=== PATIENT | male | born 1955 | race Caucasian/White ===

== ENCOUNTER 2022-06-25 13:03 | Emergency (ER) | payer OTHER ==
--- OUTSIDE RECORDS SUMMARY | 2022-06-25 13:12 | XMS REPORT | Continuity of Care Document ---
:1955 Author Organization [facility] t Address [address] [place] [address] Care Team Providers Name Role Phone LON SPANGLER Attending Clinician Unavailable JOJO GARCIAS Attending Clinician Unavailable RITA HAQUE Attending Clinician Unavailable JOJO GARCIAS Admitting Clinician Unavailable DENISSE VILLASENOR Admitting Clinician Unavailable Problems Condition Condition Condition Status Onset Resolution Last Treating Co mments Source Name Details Category Date Date Treatment Clinician Date UNK UNK Diagnosis Active 2021-06-15 Mem oria Active 05-07 05:41:00 l 05/07/2021 00:00: Fredi osorio [facility] 00 Mo,SHIRA [place] COLONOSCOP Diagnosis Active 2021-07-10 Memoria Y COLONOSCOP 05-07 15:17:00 l Y Active 00:00: Mo 05/07/[address] [place] [address] Mo R52 - R52 - Diagnosis Active 2021-02-18 Mem oria PAIN, PAIN, 02-10 11:49:00 l UNSPECIFIE UNSPECIFIE 00:01: Chris rocha D D Active 00 02/10/2021 [facility] [place] ACUTE ACUTE Diagnosis Active 2020-01-20 Mem oria CHEST PAIN CHEST PAIN 01-16 17:52:00 l Active 00:00: Mo 01/17/2020 00 [facility] HIGH BLOOD HIGH Diagnosis Active 2020-01-17 Memoria PRESSURE BLOOD 01-16 08:40:00 l PRESSURE 00:00: Mo Active 00 01/17/2020 [facility] CHEST PAIN CHEST Diagnosis [facility] 2019-01-11 [facility] 01-09 10:21:00 l Active 08:00: Mo 01/09/2019 00 [facility] TACHYCARDI TACHYCARD Diagnosis Active 2019-01-10 Memoria A IA Active 01-09 04:53:00 l 01/09/2019 08:00: Fredi n [address] ELEVATED ELEVATED Diagnosis Active 2017-112018-10-02 Memoria HEART/HBP HEART/HBP 1-14 18:28:00 l Active 00:00: Mo 09/26/2018 [facility] Diagnosis Active 2017-112018-12-24 [facility] oria PTCA/STENT PTCA/STENT 15:59:00 l Active 08:00: [place] 08/22/2018 00 [facility] DX: ABN DX: ABN Diagnosis Active 2018-08-22 [facility] STRESS STRESS 08-09 07:13:00 l TEST TEST 00:00: [place] Active 00 08/09/2018 [facility] 599.72 - 599.72 - Diagnosis Active 2014-07-06 [facility] MICROSCOPI MICROSCOPI 3-05 01:40:00 l C HEM C HEM 00:01: Mo Active 00 01/15/2014 [facility] [place] Dizziness Problem 2019-04-16 Ar moria and Dizziness 14:37:08 l giddiness and [place] giddiness 04/16/2019 [facility] Chronic Chronic Problem 2019-04-16 Ar moria gout, gout, 14:37:08 l unspecifie unspecifie He rmann d, without d, without tophus tophus (tophi) (tophi) 04/16/2019 [facility] Diaphragma Diaphragm Problem 2019-04-16 Memoria tic hernia atic 14:37:08 l without hernia Mo obstructio without n or obstructio gangrene n or gangrene 04/16/2019 [facility] Enlarged Enlarged Problem 2019-04-16 Memoria prostate prostate 14:37:08 l without without [place] lower lower urinary urinary tract tract symptoms symptoms 04/16/2019 [facility] prison prison Problem 2019-04-16 Memoria (current) (current) 14:37:08 l use of use of [place] aspirin aspirin 04/16/2019 [facility] prison Long Problem 2019-04-16 Me moria (current) term 14:37:08 l use of (current) Mo antithromb use of otics/anti antithromb platelets otics/anti platelets 04/16/2019 [facility] Family Family Problem 2019-03-11 Mem oria history of history of 12:08:51 l ischemic ischemic Fredi n heart heart disease disease and other and other diseases diseases of the of 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 03/11/2019 [facility] Other long Other Problem 2019-03-11 Memoria term skilled nursing 12:08:51 l (current) (current) Herm lance drug drug therapy therapy 03/11/2019 [facility] Gout, Gout, Problem 2019-01-26 Memor ia unspecifie unspecifie 14:07:47 l d d [place] 01/26/2019 [facility] Arthritis Arthritis Problem Resolve 2021-07-23 Memoria (disorder) (disorder) d 00:18:43 l Resolved [place] Problem 07/23/2021 [facility], [facility] Backache Backache Problem Resolve 2021-07-23 Memoria (finding) (finding) d 00:18:43 l Resolved Mo Problem 07/23/2021 Medical [facility], [facility] Hemorrhoid Hemorrhoi Problem Resolve 2021-07-23 Memoria s ds d 00:18:43 l (disorder) (disorder) Chris rocha Resolved Problem 07/23/2021 [facility], [facility] Interverte Intervert Problem Resolve 2021-07-23 Memoria bral disc ebral disc d 00:18:43 l prolapse prolapse Fredi n (disorder) (disorder) Resolved Problem 07/23/2021 [facility], [facility] Benign Benign Problem Resolve 2021-07-23 Mem oria prostatic prostatic d 00:18:43 l hyperplasi hyperplasi Chris rocha a a (disorder) (disorder) Resolved Problem 07/23/2021 Medical Group Gastroesop Gastroeso Problem Resolve 2021-07-23 Memoria hageal phageal d 00:18:43 l reflux reflux Mo disease disease (disorder) (disorder) Resolved Problem 07/23/2021 [facility] Group Heart Heart Problem Resolve 2021-07-23 Fausto heron disease disease d 00:18:43 l (disorder) (disorder) He rmann Resolved Problem 07/23/2021 [facility] Coronary Coronary Problem Active 2021-07-23 Memoria arterioscl arterioscl 00:18:43 l erosis erosis [place] (disorder) (disorder) Active Problem 07/23/2021 [facility], [facility] Gout Gout Problem Active 2021-07-23 Memor ia (disorder) (disorder) 00:18:43 l Active [place] Problem 07/23/2021 [facility], [facility] History of History Problem Active 2021-07-23 Memoria malignant of 00:18:43 l neoplasm malignant Izabela nn of neoplasm prostate of (situation prostate ) (situation ) Active Problem 07/23/2021 [facility], [facility] History of History Problem Active 2021-07-23 Memoria placement of 00:18:43 l of stent placement Izabela nn for of stent coronary for artery coronary disease artery (situation disease ) (situation ) Active Problem 07/23/2021 [facility], [facility] Hypertensi Hypertens Problem Active 2021-07-23 Memoria ve raquel 00:18:43 l disorder, disorder, Herm lance systemic systemic arterial arterial (disorder) (disorder) Active Problem 07/23/2021 [facility], [facility] Immunizati Immunizat Problem Active 2021-07-23 Memoria on due ion due 00:18:43 l (finding) (finding) Herm lance Active Problem 07/23/2021 [facility] [place] Patient Patient Problem Active 2021-07-23 M emoria encounter encounter 00:18:43 l status status [place] (finding) (finding) Active Problem 07/23/2021 [facility], [facility] Fatigue Fatigue Problem Active 2021-07-23 M emoria (finding) (finding) 00:18:43 l Active Mo Problem 07/23/2021 [facility], [facility] [place]ade [place] Problem Active 2021-07-23 Memoria dness edness 00:18:43 l (finding) (finding) Herm lance Active Problem 07/23/2021 [facility], [facility] [place] Palpitatio Palpitati Problem Active 2021-07-23 Memoria ns ons 00:18:43 l (finding) (finding) Herm lance Active Problem 07/23/2021 [facility], [facility] [place] Right Right Problem Active 2021-07-23 Memor ia inguinal inguinal 00:18:43 l hernia hernia Mo (disorder) (disorder) Active Problem 07/23/2021 [facility], [facility] [place] Vertigo Vertigo Problem Active 2021-07-23 Me moria (finding) (finding) 00:18:43 l Active Mo Problem 07/23/2021 [facility], [facility] [place] Hypokalemi Problem Active 2019-07-11 M emoria a Hypokalemi 11:11:25 l (disorder) a Fredi n (disorder) Active Problem 07/11/2019 Medical Group,[facility] Screening Screening Problem Active 2019-07-11 Memoria status status 11:11:25 l (finding) (finding) Herm lance Active Problem 07/11/2019 [facility] Suprapubic Suprapubi Problem Active 2020-04-10 Memoria pain c pain 23:45:53 l (finding) (finding) Herm lance Active Problem 04/10/2020 [facility] Group Benign Benign Problem Active 2018-06-02 Fausto heron prostatic prostatic 06:19:32 l hypertroph hypertroph He rmann without without outflow outflow obstructio obstructio n n (disorder) (disorder) Active Problem 06/02/2018 [facility] Raised Raised Problem Active 2018-06-02 Fausto heron prostate prostate 06:19:32 l specific specific Fredi antigen antigen (finding) (finding) Active Problem 06/02/2018 [facility] Group,[facility] CHEST CHEST Diagnosis Active 2020-01-20 Mem oria PAIN, PAIN, 17:52:00 l UNSPECIFIE UNSPECIFIE He rmann D D Active [facility] N40.0 N40.0 Diagnosis Active 2017-02-21 Mem oria Active 13:30:00 l [facility] TACHYCARDI TACHYCARD Diagnosis Active 2018-10-03 Memoria A, IA, 12:43:00 l UNSPECIFIE UNSPECIFIE He rmann D D Active [facility] Hyperlipid Hyperlipi Problem 2019-04-16 Memoria patrick salazar, 13:26:56 l unspecifie unspecifie He rmann d d 04/16/2019 [facility] Palpitatio Palpitati Problem 2019-04-16 Memoria ns ons 14:37:08 l 04/16/2019 Fredi osorio [facility] Atheroscle Atheroscl Problem 2019-04-16 Memoria rotic erotic 14:37:08 l heart heart [place] disease of disease of [place] coronary coronary artery artery without without angina angina pectoris pectoris 04/16/2019 [facility] Essential Essential Problem 2019-04-16 Memoria (primary) (primary) 14:37:08 l hypertensi hypertensi He rmann on on 04/16/2019 [facility] Other Other Problem 2019-04-16 Memor ia hyperlipid hyperlipid 14:37:08 l emia emlucy [place] 04/16/2019 [facility] Hypokalemi Hypokalem Problem 2019-04-16 Memoria a ia 14:37:08 l 04/16/2019 Fredi osorio [facility] History of Past Illness Condition Condition Condition Status Onset Resolution Last Treating Co mments Source Name Details Category Date Date Treatment Clinician Date Presence Presence Problem 2018-2019-07-11 2019-07-11 Memoria of of 2-15 11:11:25 11:11:25 l coronary coronary 05:18: Fredi osorio angioplast angioplast 26 y implant y implant and graft and graft 12/28/2018 07/11/2019 Shen Ibarra [facility] Tachycardi Tachycard Problem 2017-112019-04-16 2019-04-16 lucy Chacon, - 14:37:08 14:37:08 l unspecifie unspecifie 05:17: Chris ja kang d 57 10/03/2018 04/16/2019 Shen Ibarra [facility] Atheroscle Atheroscl Problem 2017-112019-03-11 2019-03-11 Alexei rotic erotic 0-17 12:08:51 12:08:51 l heart heart 03:52: Mo disease of disease of 35 [place] coronary coronary artery artery with with unstable unstable angina angina pectoris pectoris 08/29/2018 9 [facility] Allergies, Adverse Reactions, Alerts Allergy Allergy Status Severity Reaction(s) Onset Inactive Treating Comm ents Source Name Type Date Date Clinician losartan losartan Active Memori a l [place] Chlorhex Chlorhex Active Memori a idine idine l Gluconat Gluconat Fredi n e e Social History Social Habit Start Date Stop Date Quantity Comments Source Social History 2017-03-06 2017-03-06 [facility] ermann 16:24:57 16:24:57 Medications Ordered Filled Start Stop Current Ordering Indication Dosage Frequency Signature Comments Components Source Medication Medication Date Date Medication? Clinician (SIG) Name Name atorvastati Yes 40 mg = 1 M emoria n 40 mg 9-01 tab, PO, l oral tablet 14:09: Bedtime, # [place] 00 90 tab, 1 Refill(s), Pharmacy: [facility] #1, 170.18, cm, 06/21/21 9:27:00 CDT, Height, 80.114, kg, 06/21/21 9:27:00 CDT, Weight olmesartan Yes = 1 tab, Mem oria 40 mg oral 8-27 PO, Daily, l tablet 15:29: # 90 ea, 3 Izabela nn 00 Refill(s), Pharmacy: [facility]-63, 170.18, cm, 06/21/21 9:27:00 CDT, Height, 80.114, kg, 06/21/21 9:27:00 CDT, Weight Triamcinolo Yes 1 appl, Mem oria ne 8-09 TOP, BID, l Acetonide 1 14:45: PRN Apply H ermann MG/ML 00 to Topical affected Cream area(s), apply a thin film to leg rash, X 14 day, # 60 gm, 0 Refill(s), Pharmacy: [facility] Pharmacy [place] #1, 170.18, cm, 06/21/21 9:27:00 CDT, Height, 80.114, kg, 06/21/21 9:27:00 CDT, Weight allopurinol Yes = 1 tab, Me moria 300 mg oral 6-24 PO, Daily, l tablet 19:04: # 90 ea, 3 Izabela nn 00 Refill(s), Pharmacy: [facility], 170.18, cm, 05/06/21 9:07:00 CDT, Height, 81.42, kg, 05/06/21 9:07:00 CDT, Weight Vitamin D3 Yes Daily, 0 Mem oria 5-12 Refill(s) l 20:49: Mo meclizine Yes 25 mg = 1 Mem oria 25 mg oral 3-30 tab, PO, l tablet 18:39: TID, PRN [place] 00 dizziness, X 10 day, # 30 tab, 0 Refill(s), Pharmacy: [facility] Pharmacy [place] #1, 170.18, cm, 02/09/21 13:10:00 CDT, Height, 80.085, kg, 02/09/21 13:10:00 CDT, Weight Labetalol No 10 mg, Memori a -20 Route: l 20:58: IVP, Mo Q5Min, Dosing Weight 77.273, kg, PRN Elevated BP, Start date: 12/02/20 14:58:00 FOOD ASSEMBLER, Duration: 5 doses or times, Stop date: Limited # of times Ketorolac Yes 4 days Memor ia -20 l 20:58: MEDICATION Mo 00 WASTE Product Size: 30 mg Product Wasted: ___ mg Acetaminoph No 1,000 mg, M emoria en 12-02 Route: l 20:58: IVPB, Drug Mo 00 form: INJ, ONCE, Dosing Weight 77.273, kg, PRN Pain Score 1-3, Start date: 12/02/20 14:58:00 FOOD ASSEMBLER Oxycodone 1-0 No 5 mg, Memoria Hydrochlori 12-02 Route: PO, l de 5 MG 20:58: Drug form: Herm lance Oral Tablet 00 TAB, Q4H, Dosing Weight 77.273, kg, PRN Pain Score 1-3, Start date: 12/02/20 14:58:00 FOOD ASSEMBLER, Duration: 30 day, Stop date: 01/01/21 14:57:00 FOOD ASSEMBLER Morphine 2020-0 No 2 mg, Memoria 12-02 Route: l 20:58: IVP, [place] 00 Q5Min, Dosing Weight 77.273, kg, PRN Pain Score 4-6, Start date: 12/02/20 14:58:00 FOOD ASSEMBLER, Duration: 5 doses or times, Stop date: Limited # of times Hydromorpho 2020-0 No 0.5 mg, Mem oria ne 12-02 Route: l 20:58: IVP, [place] 00 Q5Min, Dosing Weight 77.273, kg, PRN Pain Score 7-10, Start date: 12/02/20 14:58:00 FOOD ASSEMBLER, Duration: 4 doses or times, Stop date: Limited # of times Flumazenil 2020-0 No 0.2 mg, Fausto heron 12-02 Route: l 20:58: IVP, PRN, [place] 00 Dosing Weight 77.273, kg, PRN Benzodiaze pine Reversal, Initial dose, Start date: 12/02/20 14:58:00 FOOD ASSEMBLER, Duration: 30 day, Stop date: 01/01/21 14:57:00 FOOD ASSEMBLER Naloxone 2020-0 No 0.4 mg, Memori a 12-02 Route: l 20:58: IVP, [place] 00 Q2MIN, Dosing Weight 77.273, kg, PRN Narcotic Reversal, Start date: 12/02/20 14:58:00 FOOD ASSEMBLER, Duration: 8 doses or times, Stop date: Limited # of times Albuterol 1-0 No 2.49 mg, Fausto heron 0.83 MG/ML 12-02 Route: l Inhalant 20:58: NEB, [place] Solution 00 Q20Min, Dosing Weight 77.273, kg, PRN Wheezing, Start date: 12/02/20 14:58:00 FOOD ASSEMBLER, Duration: 30 day, Stop date: 01/01/21 14:57:00 FOOD ASSEMBLER Diphenhydra No 12.5 mg, Me moria mine 12-02 Route: l 20:58: IVP, Drug form: INJ, Q6H, Dosing Weight 77.273, kg, PRN Itching, Start date: 12/02/20 14:58:00 FOOD ASSEMBLER, Duration: 30 day, Stop date: 01/01/21 14:57:00 FOOD ASSEMBLER Meperidine No 12.5 mg, Mem oria 12-02 Route: l 20:58: IVP, Mo Q30Min, Dosing Weight 77.273, kg, PRN Other -See Comment, For shivering, Start date: 12/02/20 14:58:00 FOOD ASSEMBLER, Duration: 2 doses or times, Stop date: Limited # of times Ondansetron No 4 mg, Memor ia 12-02 Route: l 20:58: IVP, ONCE, Dosing Weight 77.273, kg, PRN Nausea & Vomiting, Start date: 12/02/20 14:58:00 FOOD ASSEMBLER glycopyrrol No Route: IV, Memoria ate (ANES) 12-02 Drug form: l 20:26: INJ, ONCE, Stop date: 12/02/20 14:26:00 FOOD ASSEMBLER midazolam No Route: IV, Me moria (ANES) 12-02 Drug form: l 19:56: SOLN, 00 ONCE, Stop date: 12/02/20 13:56:00 FOOD ASSEMBLER fentaNYL No Route: IV, Mem oria (ANES) 12-02 Drug form: l 19:56: INJ, ONCE, Stop date: 12/02/20 13:56:00 FOOD ASSEMBLER propofol No Route: IV, Mem oria (ANES) 12-02 Drug form: l 19:56: INJ, ONCE, Stop date: 12/02/20 13:56:00 FOOD ASSEMBLER lidocaine No Route: IV, Me moria (ANES) 1-20 Drug form: l 19:56: INJ, ONCE, Stop date: 12/02/20 13:56:00 FOOD ASSEMBLER ondansetron No Route: IV, Memoria (ANES) 1-20 Drug form: l 19:56: INJ, ONCE, Stop date: 12/02/20 13:56:00 FOOD ASSEMBLER ePHEDrine No Route: IV, Me moria (ANES) 1- Drug form: l 19:56: INJ, ONCE, Stop date: 12/02/20 13:56:00 FOOD ASSEMBLER ceFAZolin No Route: IV, Me moria (ANES) 1- Drug form: l 19:51: INJ, ONCE, Stop date: 12/02/20 13:51:00 FOOD ASSEMBLER Lactated No Route: IV, Mem oria Ringers -20 Total l Injection 19:00: Volume: Izabela nn IV (ANES) 00 1,000, 1000 mL Start date: 12/02/20 13:00:00 FOOD ASSEMBLER, Stop date: 12/02/20 14:00:00 FOOD ASSEMBLER tramadol Yes 100 mg = 2 Mem oria hydrochlori 1-20 tab, PO, l de 50 MG 16:25: Q8H, X 5 Izabela nn Oral Tablet 00 day, # 30 tab, 0 Refill(s) gabapentin Yes 300 mg = 1 M emoria 300 MG Oral 1-20 cap, PO, l Capsule 16:25: TID, # 42 Izabela nn 00 cap, 0 Refill(s) Calcium No 1,000 mL, Memor ia Chloride 1-20 Rate: 75 l 0.0014 15:51: ml/hr, MEQ/ML / 00 Infuse Potassium over: 13.3 Chloride hr, Route: 0.004 IV, Dosing MEQ/ML / Weight Sodium 77.273 kg, Chloride Total 0.103 Volume: MEQ/ML / 1,000, Sodium Start Lactate date: 0.028 12/02/20 MEQ/ML 9:51:00 Injectable FOOD ASSEMBLER, Solution Duration: 1 day, Stop date: 12/03/20 9:50:00 FOOD ASSEMBLER, 1.93, m2, 0 metoprolol Yes 50 mg = 1 Me moria tartrate 50 1-07 tab, PO, l mg oral 13:32: BID, # 180 Herm lance tablet 00 tab, 0 Refill(s) 0.5 ML 2019-0 Yes 0.5 mL, Memoria Varicella 6-05 IM, ONCE, l zoster 19:25: repeat Mo virus 00 dose in 2 glycoprotei to 6 n E, months, # recombinant 1 mL, 1 0.1 MG/ML Refill(s), Injection Pharmacy: [Shingrix] [facility] #1 allopurinol 2019-0 Yes 300 mg, Mem oria 300 mg oral 6-05 PO, Daily, l tablet 19:15: # 90 tab, Fredi n 00 3 Refill(s), Pharmacy: [facility] #1 olmesartan 2019-0 Yes 40 mg = 1 Me moria 40 mg oral 6-05 tab, PO, l tablet 19:15: Daily, # [place] 00 90 tab, 3 Refill(s), Pharmacy: [facility] #1 Sulfamethox 2019-0 Yes 1 tab, PO, Memoria azole 800 5-06 BID, X 14 l MG / 21:43: day, # 28 [place] Trimethopri 00 tab, 0 m 160 MG Refill(s), Oral Tablet Pharmacy: [Bactrim] [facility] #1 Ciprofloxac 2019-0 Yes 500 mg = 1 Memoria in 500 MG 5-06 tab, PO, l Oral Tablet 14:03: Q12H, for H ermann [Cipro] 00 prostatiti s, X 25 day, # 50 tab, 0 Refill(s), Pharmacy: [facility] #1 Ciprofloxac 2020-0 No 500 mg = 1 Memoria in 500 MG 5-05 tab, PO, l Oral Tablet 19:17: Q12H, for H ermann [Cipro] 00 UTI, X 3 day, # 6 tab, 0 Refill(s), Pharmacy: [facility] #1 Sodium 2020-0 No 1,000 mL, Memori a Chloride 3-06 Rate: 75 l 0.45% IV 14:32: ml/hr, [place] 1,000 mL 00 Infuse over: 13.3 hr, Route: IV, Dosing Weight 80.455 kg, Total Volume: 1,000, Start date: 01/17/20 8:32:00 FOOD ASSEMBLER, Duration: 30 day, Stop date: 02/16/20 8:31:00 CDT, 1.97, m2, 0 Dextrose 2020-0 No 12.5 gm, Memor ia 50% Syringe 3-06 25 mL, l (D50W) 14:30: Route: Mo IVP, Drug Form: INJ, Dosing Weight 80.455, kg, PRN, PRN Blood Glucose Results, Start date: 01/17/20 8:30:00 FOOD ASSEMBLER, Duration: 30 day, Stop date: 02/16/20 9:29:00 CDT, 0 Glucagon 2019-0 No 1 mg, Memoria 01-16 Route: IM, l 14:30: Drug form: [place] PDR/INJ, PRN, Dosing Weight 80.455, kg, PRN Blood Glucose Results, Start date: 01/17/20 8:30:00 FOOD ASSEMBLER, Duration: 30 day, Stop date: 02/16/20 9:29:00 CDT, 0 Ondansetron 2019-0 No Notes: Fausto heron - (Same as: l 14:30: Zofran) [place] 00 MEDICATION WASTE Product Size: 4 mg Product Wasted: ___ mg Aspirin 2019-0 No Notes: Memoria 3-06 Take with l 12:50: food. [place] 00 Sodium 2020-0 No 1,000 mL, Memori a Chloride -06 1000 l 0.9% 11:15: ml/hr, Mo (Bolus) IV 00 Infuse Over: 1 hr, Route: IV, 1,000, Drug form: INJ, ONCE, Priority: STAT, Dosing Weight 80.455 kg, Start date: 01/17/20 5:15:00 FOOD ASSEMBLER, Stop date: 01/17/20 5:15:00 FOOD ASSEMBLER, 0 olmesartan 2019- Yes 40 mg = 1 Me moria 40 mg oral 0-22 tab, PO, l tablet 13:47: Daily, # Mo 50 90 tab, 3 Refill(s), Pharmacy: [facility] #1 allopurinol 2019- Yes 300 mg, Mem oria 300 mg oral 0-22 PO, Daily, l tablet 13:47: # 90 tab, Fredi n 43 3 Refill(s), Pharmacy: [facility] Pharmacy [place] #1 Ticagrelor Yes = 1 tab, Mem oria 90 MG Oral 4-27 PO, BID, # l Tablet 12:59: 180 ea, Mo [Brilinta] 04 Refill(s) 5, Pharmacy: [facility] Pharmacy [place] #1 olmesartan Yes 40 mg = 1 Me moria 40 mg oral 4-23 tab, PO, l tablet 12:33: Daily, # Mo 04 90 tab, 1 Refill(s), Pharmacy: [facility] Pharmacy [place] #1 allopurinol Yes 300 mg, Mem oria 300 mg oral 4-23 PO, Daily, l tablet 12:33: # 90 tab, Fredi n 02 3 Refill(s), Pharmacy: [facility] Pharmacy [place] #1 Aspirin 81 No Notes: Do Me moria MG Enteric 3- not crush l Coated 15:00: or chew. [place] Tablet 00 (Same As: Ecotrin) atorvastati No Notes: Fausto heron n 3-01 (Same as: l 03:00: Lipitor) Protonix No Notes: Memoria 2-28 Tablet l 22:30: should not 00 be chewed or crushed. (Same as: Protonix) Saline No Notes: Memoria Flush 0.9% -28 (Same as: l 15:00: BD Posiflush) Brilinta No Notes: Memoria 2-28 (Same as: l 15:00: Brilinta) Omeprazole No 20 mg, Memor ia 2-28 Route: PO, l 15:00: Drug form: ECTAB, Daily, Dosing Weight 80.2, kg, Start date: 01/10/19 9:00:00 FOOD ASSEMBLER, Duration: 30 day, Stop date: 02/08/19 9:00:00 CDT olmesartan No 40 mg, 2 Mem oria 2-28 tab, l 15:00: Route: PO, Drug form: TAB, Daily, Dosing Weight 80.2, kg, Start date: 01/10/19 9:00:00 FOOD ASSEMBLER, Duration: 30 day, Stop date: 02/08/19 9:00:00 CDT Allopurinol No Notes: Fausto heron 01-10 (Same as: l 15:00: Zyloprim) Enoxaparin No Notes: Memor ia 01-10 (Same as: l 11:00: Lovenox) Saline No Notes: Memoria Flush 0.9% 01-10 (Same as: l 10:17: BD Posiflush) Nitroglycer No Notes: Fausto heron in 01-10 (Same l 10:17: as:Nitroqu ick, Nitrostat) "Do Not Crush" Sublingual tablet Aspirin No Notes: Memoria 01-10 Take with l 08:51: food. Saline No Notes: Memoria Flush 0.9% 01-10 (Same as: l 08:51: BD Posiflush) allopurinol 2017-11 No 300 mg, Mem oria 300 mg oral 1-26 PO, Daily, l tablet 13:56: # 90 tab, Fredi n 00 3 Refill(s), Pharmacy: [facility] Pharmacy [place] #1 olmesartan 2017-11 No 40 mg = 1 Me moria 40 mg oral 1-26 tab, PO, l tablet 13:54: Daily, # Mo 36 90 tab, 1 Refill(s), Pharmacy: [facility] olmesartan 2017-11 No 40 mg = 1 Me moria 40 mg oral 1-20 tab, PO, l tablet 13:11: Daily, # [place] 00 30 tab, 0 Refill(s), Pharmacy: [facility] Pharmacy [place] #1 atorvastati 2017-11 No Notes: Fausto heron n 1-16 (Same as: l 03:00: Lipitor) Potassium 2017-11 No Notes: Memori a Chloride 1-15 (Same as: l 19:56: K-Dur 20) "Do Not Crush" For patients unable to swallow tablet, dissolve in one half glass of water. Allow about 2 minutes for the tablets to disintegra te. Stir before giving to prepare slurry and administer . Please exclude Patient s with feeding tube less than 14 [place] (Dobhoff, J-tube etc) and pediatric and patients. With food and full glass of water Protonix 2017-11 No Notes: Memoria 1-15 Tablet l 15:00: should not [place] 00 be chewed or crushed. (Same as: Protonix) Brilinta 2017-11 No Notes: Memoria 1-15 (Same as: l 15:00: Brilinta) [place] 00 olmesartan 2017-11 No 40 mg, 2 Mem oria 1-15 tab, l 15:00: Route: PO, Mo 00 Drug form: TAB, Daily, Dosing Weight 81.5, kg, Start date: 09/27/18 9:00:00 [employer]SEMBLER, Duration: 30 day, Stop date: 10/26/18 9:00:00 FOOD ASSEMBLER Aspirin 81 2017-11 No Notes: Do Me moria MG Enteric 1-15 not crush l Coated 15:00: or chew. [place] Tablet 00 (Same As: Ecotrin) Allopurinol 2017-11 No Notes: Fausto heron 1-15 (Same as: l 15:00: Zyloprim) [place] 00 Ondansetron 2017-11 No Notes: Fausto heron 1-15 (Same as: l 09:59: Zofran [place] 00 ODT) Acetaminoph 2017-11 No Notes: Do M emoria en -15 not exceed l 09:59: 4 gm/day. Mo (Same as: Tylenol) Dextrose 2017-11 No 25 gm, 50 Fausto heron 50% Syringe 1-15 mL, Route: l 09:59: IVP, Drug [place] 00 Form: INJ, Dosing Weight 83.009, kg, PRN, PRN Blood Glucose Results, Start date: 09/27/18 3:59:00 FOOD ASSEMBLER, Duration: 30 day, Stop date: 10/27/18 3:58:00 FOOD ASSEMBLER Glucagon 2017-11 No 1 mg, Memoria 1-15 Route: IM, l 09:59: Drug form: Mo 00 PDR/INJ, PRN, Dosing Weight 83.009, kg, PRN Blood Glucose Results, Start date: 09/27/18 3:59:00 FOOD ASSEMBLER, Duration: 30 day, Stop date: 10/27/18 3:58:00 FOOD ASSEMBLER Saline 2017-11 No Notes: Memoria Flush 0.9% 1-15 (Same as: l 03:57: BD Mo 00 Posiflush) atorvastati 2017-11 Yes 40 mg = 1 M emoria n 40 mg 0-15 tab, PO, l oral tablet 21:55: Bedtime, # [place] 54 90 tab, 3 Refill(s), Pharmacy: [facility] Pharmacy [place] #1 Aspirin 81 2017-11 No 81 mg, Memor ia MG Enteric 0-11 Route: PO, l Coated 14:00: Drug form: Izabela nn Tablet 00 ECTAB, Daily, Dosing Weight 84.091, kg, Start date: 08/23/18 9:00:00 CDT, Duration: 30 day, Stop date: 09/21/18 9:00:00 FOOD ASSEMBLER Ticagrelor 2017-11 No 90 mg, Memor ia 0-11 Route: PO, l 02:00: Q12H, Mo 00 Dosing Weight 84.091, kg, Start date: 08/22/18 21:00:00 CDT, Duration: 30 day, Stop date: 09/21/18 9:00:00 FOOD ASSEMBLER Nitroglycer 2017-11 No Notes: Fausto heron in 0-10 (Same l 15:30: as:Nitroqu Mo 00 ick, Nitrostat) "Do Not Crush" Sublingual tablet Sodium 2017-11 No 750 mL, Memoria Chloride 0-10 Rate: 75 l 0.9% IV 750 15:30: ml/hr, Herm lance mL 00 Infuse over: 10 hr, Route: IV, Dosing Weight 84.091 kg, Total Volume: 750, Start date: 08/22/18 10:30:00 CDT, Duration: 10 hr, Stop date: 08/22/18 20:29:00 CDT, 2.01, m2 Ticagrelor 2017-11 No 90 mg = 1 Me moria 90 MG Oral 0-10 tab, PO, l Tablet 15:28: BID, # 60 Fredi n [Brilinta] 00 tab, 6 Refill(s), Pharmacy: [facility] Pharmacy [place] #1 Aspirin 81 2017-11 Yes 81 mg = 1 Me moria MG Enteric 0-10 tab, PO, l Coated 15:28: Daily, # [place] Tablet 00 90 tab, 3 Refill(s), Pharmacy: [facility] #1 atorvastati 2017-11 No 40 mg = 1 M emoria n 40 mg 0-10 tab, PO, l oral tablet 15:28: Bedtime, # [place] 00 30 tab, 0 Refill(s), Pharmacy: [facility] #1 Omeprazole 2017-11 Yes 20 mg = 1 Me moria 20 MG 0-09 tab, PO, l Enteric 14:49: Daily [place] Coated 00 Tablet [Prilosec] olmesartan No 40 mg = 1 Me moria 40 mg oral 8-30 tab, PO, l tablet 15:35: Daily, # Mo 00 90 tab, 0 Refill(s), Pharmacy: [facility] Pharmacy [place] #1 valsartan No 320 mg = 1 Me moria 320 mg oral 8-30 tab, PO, l tablet 14:11: Daily, # [place] 00 90 tab, 1 Refill(s), Pharmacy: [facility] #1 escitalopra No 10 mg = 1 M emoria m 10 mg 8-30 tab, PO, l oral tablet 14:08: Daily, # [place] 00 90 tab, 0 Refill(s), Pharmacy: [facility] #1 losartan No 100 mg = 1 Mem oria 100 mg oral 7-18 tab, PO, l tablet 13:22: Daily, # Mo 00 90 tab, 1 Refill(s) Protonix No 40 mg, 1 Memor ia 5-23 tab, l 21:30: Route: PO, Mo 00 Drug form: ECTAB, Before Dinner, Start date: 04/04/17 16:30:00 CDT, Duration: 30 day, Stop date: 05/03/17 16:30:00 CDT Lactated 2016-0 No 1,000 mL, Fausto heron [place] 5-23 Rate: 100 l 1,000 mL 15:56: ml/hr, Infuse over: 10 hr, Route: IV, Dosing Weight 84.591 kg, Total Volume: 1,000, Priority: STAT, Start date: 04/04/17 10:56:00 CDT, Duration: 30 day, Stop date: 05/04/17 10:55:00 CDT oxybutynin 2016- No Notes: Memor ia 5-23 Same as: l 14:29: Ditropan) Morphine No 2 mg, 1 Memori a 5-23 mL, Route: l 14:27: IV, Drug form: SOLN, Q3H, Dosing Weight 84.591, kg, PRN Pain Score 4-6, Start date: 04/04/17 9:27:00 CDT, Duration: 30 day, Stop date: 05/04/17 9:26:00 CDT tamsulosin No Notes: Memor ia 5-23 (Same As: l 14:16: Flomax) "Do Not Crush" Sodium No 1,000 mL, Memori a Chloride 5-23 Rate: 100 l 0.154 14:13: ml/hr, MEQ/ML 00 Infuse Injectable over: 10 Solution hr, Route: IV, Dosing Weight 84.591 kg, Total Volume: 1,000, Start date: 04/04/17 9:13:00 CDT, Duration: 30 day, Stop date: 05/04/17 9:12:00 CDT Rocephin No Notes: Memoria 5-23 (Same As: l 14:12: Rocephin). Use with 100 mL NS and infuse over 30 min MEDICATION WASTE Product Size: 1000 mg Product Wasted: _0__ mg Diovan 2016- No Notes: Memoria 5-23 Same as l 14:00: Diovan Prilosec No 20 mg, Memoria 5-23 Route: PO, l 14:00: Daily, Dosing Weight 84.591, kg, Start date: 04/04/17 9:00:00 CDT, Duration: 30 day, Stop date: 05/03/17 9:00:00 CDT Allopurinol 2016-0 No Notes: Fausto heron 5-23 (Same as: l 14:00: Zyloprim) Tylenol No 650 mg, 2 Memor ia 5-23 tab, l 11:34: Route: PO, Mo 00 Drug form: TAB, Q4H, Dosing Weight 84.591, kg, PRN Pain Score 1-3, Start date: 04/04/17 6:34:00 CDT, Duration: 30 day, Stop date: 05/04/17 6:33:00 CDT Sodium No 25 mL, Memoria Chloride 5-23 Route: IV, l 0.9% IV 02:34: Start [place] 00 date: 04/03/17 21:34:00 CDT, Duration: 30 day, Stop date: 05/03/17 21:33:00 CDT, PRN Line Flush BD Normal No Notes: Memori a Saline 5-23 (Same as: l Flush 02:34: BD Mo Posiflush) Sodium No 1,000 mL, Memori a Chloride 5-23 1000 l 0.154 02:28: ml/hr, [place] MEQ/ML 00 Infuse Injectable Over: 1 Solution hr, Route: IV, 1,000, Drug form: INJ, ONCE, Priority: STAT, Dosing Weight 84.091 kg, Start date: 04/03/17 21:28:00 CDT, Duration: 1 doses or times, Stop date: 04/03/17 21:28:00 CDT Finasteride Yes 5 mg = 1 Me moria 5 MG Oral 4-28 tab, PO, l Tablet 16:39: Daily, # [place] [Proscar] 00 30 tab, 0 Refill(s), Pharmacy: [facility] Pharmacy [place] #2 Ciprofloxac Yes 500 mg = 1 Memoria in 500 MG 4-28 tab, PO, l Oral Tablet 16:39: Q12H, X 7 H ermann [Cipro] 00 day, # 14 tab, 0 Refill(s), Pharmacy: [facility] Pharmacy [place] #2 tramadol Yes 1 - 2 Memoria hydrochlori 4-28 tabs, PO, l de 50 MG 16:39: Q4-6H, PRN Her colon Oral Tablet 00 Pain Score [Ultram] 1-5, X 4 day, # 30 tab, 0 Refill(s) Protonix No Notes: Memoria 4-27 Tablet l 21:30: should not [place] be chewed or crushed. (Same as: Protonix) Docusate No Notes: Memoria Sodium 100 03-09 (Same as: l MG Oral 14:00: Colace) [place] Capsule (Do Not Crush) Famotidine No Notes: Memor ia 03-09 (Same as: l 14:00: Pepcid) Ciprofloxac No Notes: Do M emoria in 03-09 not l 14:00: refrigerat e Diovan No Notes: Memoria 03-09 Same as l 14:00: Diovan Allopurinol No Notes: Fausto heron 03-09 (Same as: l 14:00: Zyloprim) Prilosec No 20 mg, Memoria 03-09 Route: PO, l 14:00: Daily, Dosing Weight 85.511, kg, Start date: 03/09/17 9:00:00 CDT, Duration: 30 day, Stop date: 04/07/17 9:00:00 CDT Promethazin No Notes: Do M emoria e 03-09 not give l 13:09: IV push. (Same as: Phenergan) Meperidine No Notes: Memor ia 03-09 (Same as: l 13:09: Demerol) "Use Precaution in Elderly, Seizure disorders, and Renal impairment " Ondansetron No Notes: Fausto heron 03-09 (Same as: l 13:09: Zofran) MEDICATION WASTE Product Size: 4 mg Product Wasted: ___ mg Flumazenil No Notes: Memor ia 03-09 (Same as: l 13:09: Romazicon) Hydromorpho No Notes: Fausto heron ne 03-09 Same as l 13:09: Dilaudid Morphine No Notes: Memoria 03-09 (Same l 13:09: as:MORPhin e Sulfate) Naloxone No Notes: Memoria 03-09 Same as l 13:09: Narcan Labetalol No 10 mg, Memori a 4-27 Route: l 13:09: IVP, Mo 00 Q5Min, Dosing Weight 85.511, kg, PRN Elevated BP, Start date: 03/09/17 8:09:00 CDT, Duration: 5 doses or times, Stop date: Limited # of times Metoprolol No Notes: Memor ia 4-27 (Same as: l 13:09: Lopressor) Push over 2 minutes Hydralazine No Notes: Fausto heron -27 (Same as: l 13:09: Apresoline ) Push over 5 minutes esmolol No Notes: Memoria 4-27 (Same as: l 13:09: Brevibloc) Belladonna No Notes: Memor ia Alkaloids - (Same As:B l 16.2 MG / 13:00: & O Supp Herm lance Opium 30 MG 16A) Rectal Suppository Ondansetron No Notes: Fausto heron - (Same as: l 13:00: Zofran) MEDICATION WASTE Product Size: 4 mg Product Wasted: ___ mg Morphine No 6 mg, 3 Memori a 4-27 mL, Route: l 13:00: IVP, Drug form: SOLN, Q4H, Dosing Weight 85.511, kg, PRN Pain Score 7-10, Start date: 03/09/17 8:00:00 CDT, Duration: 30 day, Stop date: 04/08/17 7:59:00 CDT acetaminoph No Notes: Do M emoria en-codeine - not exceed l #3 13:00: 4gm/day of acetaminop hen. (Same as: Tylenol with Codeine # 3) Acetaminoph No Notes: Do M emoria en 4-27 not exceed l 13:00: 4 gm/day. (Same as: Tylenol) Calcium No 1,000 mL, Memor ia Chloride 03-09 Rate: 125 l 0.0014 13:00: ml/hr, MEQ/ML / 00 Infuse Potassium over: 8 Chloride hr, Route: 0.004 IV, Dosing MEQ/ML / Weight Sodium 85.511 kg, Chloride Total 0.103 Volume: MEQ/ML / 1,000, Sodium Start Lactate date: 0.028 03/09/17 MEQ/ML 8:00:00 Injectable CDT, Solution Duration: 30 day, Stop date: 04/08/17 7:59:00 CDT ceFAZolin + No Notes: Fausto heron sodium 4-27 (Same As: l chloride 11:00: Ancef, Mo 0.9% 100 mL 00 Kefzol) INJ (for IV set) 100 mL MEDICATION WASTE Product Size: 1000 mg Product Wasted: _0__ mg Sodium No 25 mL, Memoria Chloride 4-27 Route: IV, l 0.9% IV 11:00: Start [place] 00 date: 03/09/17 6:00:00 CDT, Duration: 30 day, Stop date: 04/08/17 5:59:00 CDT, PRN Line Flush BD Normal No Notes: Memori a Saline 4-27 (Same as: l Flush 11:00: BD Mo 00 Posiflush) Lidocaine No Notes: Memori a 4-27 Ingredient l 10:30: s: 2 ml [place] 00 lidocaine 1% inj , 0.2ml sodium bicarbonat e 8.4% inj total volume = 2.2ml Refrigerat e: 14 days Room temp: 7 days Calcium No 1,000 mL, Memor ia Chloride 4-27 Rate: 25 l 0.0014 10:30: ml/hr, Mo MEQ/ML / 00 Infuse Potassium over: 40 Chloride hr, Route: 0.004 IV, Dosing MEQ/ML / Weight Sodium 85.511 kg, Chloride Total 0.103 Volume: MEQ/ML / 1,000, Sodium Start Lactate date: 0.028 03/09/17 MEQ/ML 5:30:00 Injectable CDT, Solution Duration: 30 day, Stop date: 04/08/17 5:29:00 CDT Immunizations Ordered Immunization Filled Immunization Date Status Commen ts Source Name Name [id number] 2021-01-25 Completed Fausto rial [id number] 00:00:00 Herm lance [id number] 2021-01-04 Completed Fausto rial [id number] 00:00:00 Herm lance pneumococcal 2020-04-17 Completed [facility] 23-valent 19:43:00 [place] vaccine<sup>1</sup> pneumococcal 2019-01-10 Completed [facility] 13-valent vaccine 19:15:00 [place] Vital Signs Vital Name Observation Time Observation Value Comments Source Systolic (mm Hg) 2021-06-21 14:27:[address] [place] Diastolic (mm Hg) 2021-06-21 14:27:00 Mem orial Mo Height 2021-06-21 14:27:00 170.18 cm [facility] Mo Weight 2021-06-21 14:27:00 [facility] Mo BMI Calculated 2021-06-21 14:27:[address] [place] Systolic (mm Hg) 2021-05-06 14:07:[address] [place] Diastolic (mm Hg) 2021-05-06 14:07:[address] [place] Heart Rate 2021-05-06 14:07:[address] [place] Height 2021-05-06 14:07:00 170.18 cm [facility] Mo Weight 2021-05-06 14:07:00 [facility] Mo BMI Calculated 2021-05-06 14:07:[address] [place] Systolic (mm Hg) 2021-04-21 15:55:00 Fausto rial Mo Diastolic (mm Hg) 2021-04-21 15:55:[address] [place] Heart Rate 2021-04-21 15:55:00 [facility] Mo Height 2021-04-21 15:55:00 170.18 cm [facility] Mo Weight 2021-04-21 15:55:[address] [place] BMI Calculated 2021-04-21 15:55:[address] [place] Systolic (mm Hg) 2021-03-24 20:37:00 Fausto rial Mo Diastolic (mm Hg) 2021-03-24 20:37:[address] [place] Height 2021-03-24 20:37:[address] [place] Weight 2021-03-24 20:37:[address] [place] BMI Calculated 2021-03-24 20:37:00 Memori al Mo Systolic (mm Hg) 2021-02-09 18:10:[address] [place] Diastolic (mm Hg) 2021-02-09 18:10:[address] [place] Heart Rate 2021-02-09 18:10:[address] [place] Height 2021-02-09 18:10:[address] [place] Weight 2021-02-09 18:10:00 [facility] Mo BMI Calculated 2021-02-09 18:10:[address] [place] Systolic (mm Hg) 2020-12-03 00:00:[address] [place] Diastolic (mm Hg) 2020-12-03 00:00:00 Mem orial Mo Systolic (mm Hg) 2020-12-02 22:30:[address] [place] Diastolic (mm Hg) 2020-12-02 22:30:00 Mem orial Mo Systolic (mm Hg) 2020-12-02 22:00:[address] [place] Diastolic (mm Hg) 2020-12-02 22:00:00 Mem orial Mo Respitory Rate 2020-12-02 21:15:00 Memori al Mo Respitory Rate 2020-12-02 21:00:[address] [place] Respitory Rate 2020-12-02 20:45:[address] [place] Height 2020-11-27 20:43:[address] [place] Weight 2020-11-27 20:43:00 [facility] Mo BMI Calculated 2020-11-27 20:43:[address] [place] Systolic (mm Hg) 2020-11-19 13:31:00 Fausto rial Mo Diastolic (mm Hg) 2020-11-19 13:31:00 Mem orial Mo Heart Rate 2020-11-19 13:31:[address] [place] Height 2020-11-19 13:31:00 170.18 cm [facility] Mo Weight 2020-11-19 13:31:00 [facility] Mo BMI Calculated 2020-11-19 13:31:00 Memori al Mo Systolic (mm Hg) 2020-08-17 19:15:00 Fausto rial Mo Diastolic (mm Hg) 2020-08-17 19:15:00 Mem orial Mo Heart Rate 2020-08-17 19:15:00 [facility] Mo Temperature Oral (F) 2020-08-17 19:15:[address] [place] Height 2020-08-17 19:15:00 170.18 cm [facility] Mo Weight 2020-08-17 19:15:00 [facility] Mo BMI Calculated 2020-08-17 19:15:[address] [place] Systolic (mm Hg) 2020-04-17 19:08:00 Fausto rial Mo Diastolic (mm Hg) 2020-04-17 19:08:00 Mem orial Mo Heart Rate 2020-04-17 19:08:00 [facility] Mo Temperature Oral (F) 2020-04-17 19:08:[address] [place] Height 2020-04-17 19:08:00 170.18 cm [facility] Mo Weight 2020-04-17 19:08:00 [facility] Mo BMI Calculated 2020-04-17 19:08:[address] [place] Systolic (mm Hg) 2020-04-08 14:56:[address] [place] Diastolic (mm Hg) 2020-04-08 14:56:[address] [place] Heart Rate 2020-04-08 14:56:00 [facility] Mo Weight 2020-04-08 14:56:[address] [place] Systolic (mm Hg) 2020-03-18 22:13:00 Fausto rial Mo Diastolic (mm Hg) 2020-03-18 22:13:00 Mem orial Om Heart Rate 2020-03-18 22:13:[address] [place] Weight 2020-03-18 22:13:[address] [place] Systolic (mm Hg) 2020-01-23 20:58:[address] [place] Diastolic (mm Hg) 2020-01-23 20:58:[address] [place] Height 2020-01-23 20:58:00 170.18 cm [facility] Mo Weight 2020-01-23 20:58:[address] [place] BMI Calculated 2020-01-23 20:58:[address] [place] Systolic (mm Hg) 2020-01-17 14:53:00 Fausto rial Mo Diastolic (mm Hg) 2020-01-17 14:53:00 Mem orial Mo Respitory Rate 2020-01-17 14:53:00 Memori al Mo Temperature Oral (F) 2020-01-17 14:53:[address] [place] Systolic (mm Hg) 2020-01-17 13:46:00 Fausto rial Mo Diastolic (mm Hg) 2020-01-17 13:46:[address] [place] Respitory Rate 2020-01-17 13:46:[address] [place] Heart Rate 2020-01-17 13:37:00 [facility] Mo Respitory Rate 2020-01-17 13:37:00 Memori al Mo Systolic (mm Hg) 2020-01-17 13:37:00 Fausto rial Mo Diastolic (mm Hg) 2020-01-17 13:37:[address] [place] Temperature Oral (F) 2020-01-17 11:00:[address] [place] Heart Rate 2020-01-17 11:00:00 [facility] Mo Heart Rate 2020-01-17 09:29:[address] [place] Temperature Oral (F) 2020-01-17 09:29:00 97.9 F [facility] Height 2020-01-17 09:29:[address] [place] BMI Calculated 2020-01-17 09:29:00 Memori al Mo Weight 2020-01-17 09:29:00 [facility] Systolic (mm Hg) 2019-09-03 13:27:00 Fausto rial Mo Diastolic (mm Hg) 2019-09-03 13:27:00 Mem orial Mo Heart Rate 2019-09-03 13:27:00 [facility] Mo Temperature Oral (F) 2019-09-03 13:27:[address] [place] Height 2019-09-03 13:27:[address] [place] Weight 2019-09-03 13:27:00 [facility] Mo BMI Calculated 2019-09-03 13:27:[address] [place] Weight 2019-03-06 18:15:00 [facility] Mo BMI Calculated 2019-03-06 18:15:[address] [place] Systolic (mm Hg) 2019-03-06 18:15:00 Fausto rial Mo Diastolic (mm Hg) 2019-03-06 18:15:[address] [place] Height 2019-03-06 18:15:[address] [place] Heart Rate 2019-03-05 12:08:[address] [place] Systolic (mm Hg) 2019-03-05 12:08:[address] [place] Diastolic (mm Hg) 2019-03-05 12:08:00 Mem orial Mo Temperature Oral (F) 2019-03-05 12:08:[address] [place] Weight 2019-02-21 20:18:[address] [place] Systolic (mm Hg) 2019-02-21 20:18:[address] [place] Diastolic (mm Hg) 2019-02-21 20:18:[address] [place] Heart Rate 2019-02-21 20:18:00 [facility] Mo Systolic (mm Hg) 2019-01-10 18:03:00 Fausto rial Mo Diastolic (mm Hg) 2019-01-10 18:03:[address] [place] Respitory Rate 2019-01-10 18:03:00 Memori al Mo Heart Rate 2019-01-10 18:03:[address] [place] Temperature Oral (F) 2019-01-10 18:03:[address] [place] Weight 2019-01-10 11:59:[address] [place] Height 2019-01-10 11:59:00 170.18 cm [facility] Mo BMI Calculated 2019-01-10 11:59:00 Memori al Mo Respitory Rate 2019-01-10 11:16:00 Memori al Mo Systolic (mm Hg) 2019-01-10 11:16:[address] [place] Diastolic (mm Hg) 2019-01-10 11:16:00 Mem orial Mo Respitory Rate 2019-01-10 10:30:[address] [place] Systolic (mm Hg) 2019-01-10 10:30:00 Fausto rial Mo Diastolic (mm Hg) 2019-01-10 10:30:[address] [place] Heart Rate 2019-01-10 08:32:00 [facility] Temperature Oral (F) 2019-01-10 07:16:00 98.2 F [facility] Weight 2019-01-10 07:16:[address] [place] Heart Rate 2019-01-10 07:16:00 [facility] Weight 2018-12-24 22:34:[address] [place] Height 2018-12-24 22:34:[address] [place] BMI Calculated 2018-12-24 22:34:00 Memori al Mo Height 2018-11-22 22:36:00 170.18 cm [facility] Weight 2018-11-22 22:36:00 [facility] BMI Calculated 2018-11-22 22:36:00 Memori al Mo BMI Calculated 2018-10-22 22:09:[address] [place] Weight 2018-10-22 22:09:00 [facility] Height 2018-10-22 22:09:00 170.18 cm [facility] BMI Calculated 2018-10-08 13:34:[address] [place] Weight 2018-10-08 13:34:[address] [place] Height 2018-10-08 13:34:00 170.18 cm [facility] Temperature Oral (F) 2018-10-08 13:34:00 98.1 F [facility] Systolic (mm Hg) 2018-10-08 13:34:00 Fausto rial Mo Diastolic (mm Hg) 2018-10-08 13:34:[address] [place] Heart Rate 2018-10-08 13:34:[address] [place] BMI Calculated 2018-10-03 18:34:[address] [place] Weight 2018-10-03 18:34:00 [facility] Height 2018-10-03 18:34:00 170.18 cm [facility] Systolic (mm Hg) 2018-10-03 18:34:00 Fausto rial Mo Diastolic (mm Hg) 2018-10-03 18:34:[address] [place] Respitory Rate 2018-09-27 17:43:00 Memori al Mo Heart Rate 2018-09-27 17:43:00 [facility] Temperature Oral (F) 2018-09-27 17:43:00 97.6 F [facility] Systolic (mm Hg) 2018-09-27 17:43:[address] [place] Diastolic (mm Hg) 2018-09-27 17:43:00 Mem orial Mo Systolic (mm Hg) 2018-09-27 14:49:00 Fausto rial Mo Diastolic (mm Hg) 2018-09-27 14:49:00 Mem orial Mo Heart Rate 2018-09-27 14:49:00 [facility] Temperature Oral (F) 2018-09-27 14:49:00 97.8 F [facility] Respitory Rate 2018-09-27 14:49:00 Memori al Mo BMI Calculated 2018-09-27 10:21:[address] [place] Weight 2018-09-27 10:21:00 [facility] Height 2018-09-27 10:21:00 170.18 cm [facility] Heart Rate 2018-09-27 09:40:[address] [place] Systolic (mm Hg) 2018-09-27 09:40:[address] [place] Diastolic (mm Hg) 2018-09-27 09:40:00 Mem orial Mo Temperature Oral (F) 2018-09-27 09:40:[address] [place] Respitory Rate 2018-09-27 09:40:[address] [place] Respitory Rate 2018-09-27 08:19:00 Memori al Mo Respitory Rate 2018-09-27 07:52:[address] [place] Systolic (mm Hg) 2018-09-27 07:52:00 Fausto rial Mo Diastolic (mm Hg) 2018-09-27 07:52:00 Mem orial Mo Temperature Oral (F) 2018-09-27 07:20:[address] [place] Systolic (mm Hg) 2018-09-27 07:20:[address] [place] Diastolic (mm Hg) 2018-09-27 07:20:00 Mem orial Mo Respitory Rate 2018-09-27 07:20:00 Memori al Mo Systolic (mm Hg) 2018-09-27 06:57:[address] [place] Diastolic (mm Hg) 2018-09-27 06:57:[address] [place] Heart Rate 2018-09-27 05:17:00 [facility] Temperature Oral (F) 2018-09-27 05:17:00 98.6 F [facility] Weight 2018-09-27 03:51:[address] [place] Temperature Oral (F) 2018-09-27 03:51:00 98.5 F [facility] Heart Rate 2018-09-27 03:51:00 [facility] Height 2018-09-19 21:50:00 170.18 cm [facility] BMI Calculated 2018-09-19 21:50:00 Memori al Mo Weight 2018-09-19 21:50:00 [facility] Height 2018-08-21 16:20:00 170.18 cm [facility] BMI Calculated 2018-08-21 16:20:[address] [place] Weight 2018-08-21 16:20:00 [facility] BMI Calculated 2018-08-01 18:04:00 Memori al Mo Height 2018-08-01 18:04:[address] [place] Weight 2018-08-01 18:04:[address] [place] Systolic (mm Hg) 2018-08-01 18:04:00 Fausto rial Mo Diastolic (mm Hg) 2018-08-01 18:04:[address] [place] Height 2018-07-12 13:29:00 170.18 cm [facility] Weight 2018-07-12 13:29:00 [facility] BMI Calculated 2018-07-12 13:29:00 Memori al Mo Systolic (mm Hg) 2018-07-12 13:29:[address] [place] Diastolic (mm Hg) 2018-07-12 13:29:00 Mem o[facility] Mo Heart Rate 2018-07-12 13:29:00 [facility] Temperature Oral (F) 2018-07-12 13:29:00 98.6 F [facility] Weight 2018-07-10 18:53:00 [facility] BMI Calculated 2018-07-10 18:53:[address] [place] Height 2018-07-10 18:53:00 170.18 cm [facility] Systolic (mm Hg) 2018-07-10 18:53:[address] [place] Diastolic (mm Hg) 2018-07-10 18:53:[address] [place] Systolic (mm Hg) 2018-07-09 21:00:[address] [place] Diastolic (mm Hg) 2018-07-09 21:00:00 Mem o[facility] Mo Respitory Rate 2018-07-09 21:00:00 Memori al Mo Systolic (mm Hg) 2018-07-09 19:30:[address] [place] Diastolic (mm Hg) 2018-07-09 19:30:[address] [place] Respitory Rate 2018-07-09 19:30:[address] [place] Respitory Rate 2018-07-09 18:31:00 Memori al Mo Heart Rate 2018-07-09 18:31:00 [facility] BMI Calculated 2018-07-09 18:31:00 [facility] al Mo Weight 2018-07-09 18:31:00 [facility] Temperature Oral (F) 2018-07-09 18:31:00 98.4 F [facility] Height 2018-07-09 18:31:[address] [place] Systolic (mm Hg) 2018-07-09 18:31:[address] [place] Diastolic (mm Hg) 2018-07-09 18:31:00 [facility] Weight 2018-06-07 18:24:[address] [place] Height 2018-05-30 12:55:00 170.18 cm [facility] Weight 2018-05-30 12:55:[address] [place] BMI Calculated 2018-05-30 12:55:[address] [place] Heart Rate 2018-05-30 12:55:[address] [place] Systolic (mm Hg) 2018-05-30 12:55:00 [facility] Diastolic (mm Hg) 2018-05-30 12:55:00 [facility] Temperature Oral (F) 2018-05-30 12:55:00 97.7 F [facility] Systolic (mm Hg) 2017-04-05 15:59:00 [facility] Diastolic (mm Hg) 2017-04-05 15:59:[address] [place] Respitory Rate 2017-04-05 15:59:00 [facility] Heart Rate 2017-04-05 15:59:[address] [place] Temperature Oral (F) 2017-04-05 15:59:00 98.8 F [facility] Diastolic (mm Hg) 2017-04-05 13:24:[address] [place] Respitory Rate 2017-04-05 13:24:00 [facility] Temperature Oral (F) 2017-04-05 13:24:00 98.9 F [facility] Heart Rate 2017-04-05 13:24:00 [facility] Systolic (mm Hg) 2017-04-05 13:24:[address] [place] Respitory Rate 2017-04-05 10:10:[address] [place] Heart Rate 2017-04-05 10:10:[address] [place] Systolic (mm Hg) 2017-04-05 10:10:[address] [place] Diastolic (mm Hg) 2017-04-05 10:10:00 [facility] Temperature Oral (F) 2017-04-05 10:10:[address] [place] Weight 2017-04-04 05:06:[address] [place] BMI Calculated 2017-04-04 05:06:00 [facility] Height 2017-04-04 05:06:00 170.18 cm [facility] BMI Calculated 2017-04-04 01:16:00 [facility] Weight 2017-04-04 01:16:00 [facility] Height 2017-04-04 01:16:[address] [place] Systolic (mm Hg) 2017-03-10 12:27:00 [facility] Diastolic (mm Hg) 2017-03-10 12:27:00 [facility] Respitory Rate 2017-03-10 12:27:00 [facility] Heart Rate 2017-03-10 12:27:[address] [place] Temperature Oral (F) 2017-03-10 12:27:00 98.2 F [facility] Temperature Oral (F) 2017-03-10 08:33:00 99.3 F [facility] Heart Rate 2017-03-10 08:33:[address] [place] Systolic (mm Hg) 2017-03-10 08:33:00 Fausto rial Mo Diastolic (mm Hg) 2017-03-10 08:33:[address] [place] Respitory Rate 2017-03-10 08:33:[address] [place] Systolic (mm Hg) 2017-03-10 01:09:00 Fausto rial Mo Diastolic (mm Hg) 2017-03-10 01:09:00 Mem orial Mo Respitory Rate 2017-03-10 01:09:00 [facility] Mo Heart Rate 2017-03-10 01:09:[address] [place] Temperature Oral (F) 2017-03-10 01:09:00 98.6 F [facility] Weight 2017-03-09 15:00:00 [facility] BMI Calculated 2017-03-09 15:00:[address] [place] Height 2017-03-09 15:00:00 170.69 cm [facility] Height 2017-03-06 16:13:00 171.45 cm [facility] Mo BMI Calculated 2017-03-06 16:13:00 Stoney Gallego Weight 2017-03-06 16:13:00 [facility] Procedures Procedure Date / Time Performed Performing Clinician [facility] livia Measurement of 2021-04-21 15:48:00 Bart colon post-voiding residual urine and/or bladder capacity by ultrasound, non-imaging Open repair of inguinal 2020-12-02 06:00:[address] [place] hernia using synthetic mesh Colonoscopy<sup>1, 2</sup> 2016-08-12 05:00:00 Shen emorijelena Mo Colonoscopy<sup>3</sup> 2010-11-13 00:00:[address] [place] 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 00:00:00 [facility] neoplasm<sup>4</sup> Cardiac catheterization, Alexei garcia [place] left heart Hand repair [facility] TURP - Transurethral [facility] resection of prostate Encounters Start End Encounter Admission Attending Care Care Encounter Source Date/Time Date/Time Type Type Clinicians Facility Department ID 2021-06-08 Outpatient KALIA SPANGLERBL [id number] [facility] 11:01:44 [facility] 2022-06-17 2022-06-17 Outpatient KALIA SPANGLERBL [id number] 05:37:00 08:28:00 [facility] 2021-07-20 2021-07-21 [place] [id number] Mem[facility] 14:00:00 04:59:59 r Cardiology 55 l [facility] 2021-07-16 2021-07-16 [place] [id number] Memoria 15:30:00 15:30:00 Pre-Reg r Cardiology 53 l [facility] 2021-07-15 2021-07-16 [place] [id number] [facility] 18:00:00 04:59:59 r Cardiology 54 l [facility] 2021-07-08 2021-07-09 Between nullFlavo [facility] [id number] Memoria 20:58:56 20:58:56 Visit r Primary 34 l [facility] 2021-06-23 2021-06-23 Ambulatory nullFlavo [facility] [id number] Memoria 20:00:00 20:00:00 Pre-Reg r Urology 51 l [facility] 2021-06-21 2021-06-22 Outpatient nullFlavo [facility] [id number] Memoria 14:40:00 04:59:59 r Primary 52 l [facility] 2021-06-18 2021-06-18 Ambulatory nullFlavo [facility] Multi 37 [id number] Memoria 14:30:00 14:30:00 Pre-Reg r Specialty 50 l [facility] 2021-05-06 2021-05-07 Between nullFlavo [facility] [id number] Memoria 18:13:29 18:13:29 Visit r Primary 32 [facility] 2021-05-06 2021-05-07 Outpatient nullFlavo [facility] Multi 37 [id number] Memoria 13:30:00 04:59:59 r Specialty 49 l [facility] 2021-04-22 2021-04-23 Between nullFlavo [facility] [id number] Memoria 17:42:54 17:42:54 Visit r Urology 31 l [facility] 2021-04-21 2021-04-22 Outpatient nullFlavo [facility] [id number] Memoria 15:15:00 04:59:59 r Urology 48 l [facility] 2021-03-24 2021-03-25 Outpatient nullFlavo [facility] [id number] Memoria 20:45:00 04:59:59 r Cardiology 47 l [facility] 2021-02-18 2021-02-19 Between nullFlavo [facility] [id number] Memoria 18:11:58 18:11:58 Visit r Primary 30 [facility] 2021-02-18 2021-02-19 Outpt Diag nullFlavo [facility] [id number] Memoria 16:39:00 04:59:00 Services r Outpatient 02 [facility] 2021-02-11 2021-02-13 Phone nullFlavo [facility] [id number] Memoria 19:59:20 04:59:59 Message r Primary 04 [facility] 2021-02-11 2021-02-12 Between nullFlavo [facility] [id number] Memoria 14:45:31 14:45:31 Visit r Primary 28 l [facility] 2021-02-09 2021-02-10 Outpatient nullFlavo [facility] [id number] Memoria 18:00:00 04:59:59 r Primary 46 l [facility] 2020-12-17 2020-12-17 Ambulatory nullFlavo [facility] [id number] Memoria 15:15:00 15:15:00 Pre-Reg r General 44 l [facility] 2020-12-11 2020-12-12 Outpatient nullFlavo [facility] [id number] Memoria 14:30:00 05:59:59 r General 45 l [facility] 2020-12-02 2020-12-03 Day nullFlavo [facility] [id number] Memoria 15:27:00 00:04:00 Surgery [facility] 26 l [facility] 2020-12-02 2020-12-02 Outpatient JUANA GARCIAS PAGE [id number] 09:27:00 18:04:[address] [facility] 2020-12-02 2020-12-02 Outpatient MHIE MHIE [id number] Memoria 12:00:00 12:00:[address] [place] 2020-11-26 2020-11-26 Outpatient MHIE MHIE [id number] Memoria 09:00:00 09:00:[address] [place] 2020-11-19 2020-11-20 Outpatient nullFlavo [facility] [id number] Memoria 13:15:00 05:59:59 r Primary 41 l [facility] 2020-09-30 2020-09-30 Ambulatory nullFlavo [facility] [id number] Memoria 15:00:00 15:00:00 Pre-Reg r Urology 36 l [facility] 2020-09-28 2020-09-28 Ambulatory nullFlavo [facility] [id number] Memoria 19:45:00 19:45:00 Pre-Reg r Urology 40 l [facility] 2020-08-17 2020-08-18 Outpatient nullFlavo [facility] [id number] Memoria 18:45:00 04:59:59 r Urology 39 l [facility] 2020-05-01 2020-05-02 [place] [id number] Memoria 15:00:00 04:59:59 r Cardiology 38 l [facility] 2020-04-22 2020-04-24 Phone nullFlavo MG [id number] Memoria 16:44:29 04:59:59 Message r Primary 03 [facility] 2020-04-21 2020-04-22 Between nullFlavo [facility] [id number] Memoria 15:01:45 15:01:45 Visit r Primary 25 [facility] 2020-04-17 2020-04-18 [place] [id number] Memoria 19:00:00 04:59:59 r Primary 37 [facility] 2020-04-08 2020-04-09 [place] [id number] Memoria 14:15:00 04:59:59 r Urology 35 l [facility] 2020-04-02 2020-04-03 [place] [id number] Memoria 13:45:00 04:59:59 r Cardiology 32 l [facility] 2020-04-02 2020-04-03 [place] [id number] Memoria 13:00:00 04:59:59 r Cardiology 31 l [facility] 2020-03-18 2020-03-19 Between nullFlavo [facility] [id number] Memoria 14:02:06 14:02:06 Visit r Primary 24 [facility] 2020-03-18 2020-03-19 [place] [id number] Memoria 21:00:00 04:59:59 r Urology 34 l [facility] 2020-03-17 2020-03-18 [place] [id number] Memoria 19:00:00 04:59:59 r Primary 33 [facility] 2020-03-04 2020-03-04 [place] [id number] Memoria 12:15:00 12:15:00 Pre-Reg r Primary 29 [facility] 2020-02-14 2020-02-16 Phone nullFlavo [id number] Memoria 16:48:10 04:59:59 Message r Primary 02 [facility] 2020-01-23 2020-01-24 Outpatient nullFlavo [facility] [id number] Memoria 21:00:00 04:59:59 r Cardiology 28 l [facility] 2020-01-17 2020-01-17 Emergency nullFlavo [facility] [id number] Memoria 09:25:11 15:09:00 r Mo 22 [facility] 2020-01-17 2020-01-17 Emergency E [place] [id number] Memoria 03:25:00 09:09:[facility] 2020-01-10 2020-01-10 Ambulatory nullFlavo [facility] [id number] Memoria 17:30:00 17:30:00 Pre-Reg r Primary 30 [facility] 2019-09-03 2019-09-04 Outpatient nullFlavo [facility] [id number] Memoria 13:30:00 04:59:59 r Primary 27 [facility] 2019-04-09 2019-04-09 Ambulatory nullFlavo [facility] [id number] Memoria 12:30:00 12:30:00 Pre-Reg r Primary 22 [facility] 2019-04-01 2019-04-02 Between nullFlavo [facility] [id number] Memoria 13:34:02 13:34:02 Visit r Primary 21 [facility] 2019-03-18 2019-03-19 Between nullFlavo [facility] [id number] Memoria 16:43:01 16:43:01 Visit r Primary 19 [facility] 2019-03-06 2019-03-07 Between nullFlavo [facility] [id number] Memoria 20:50:35 20:50:35 Visit r Urology [address] [place] 2019-03-06 2019-03-07 Outpatient nullFlavo [facility] [id number] Memoria 18:30:00 04:59:59 r Cardiology 24 [facility] 2019-03-05 2019-03-06 Outpatient nullFlavo [facility] [id number] Memoria 12:00:00 04:59:59 r Primary 26 [facility] 2019-02-22 2019-02-23 Between nullFlavo [facility] [id number] Memoria 12:42:17 12:42:17 Visit r Urology 16 l [place] 2019-02-21 2019-02-22 Outpatient nullFlavo [facility] [id number] Memoria 20:15:00 04:59:59 r Urology 25 l [facility] 2019-02-05 2019-02-05 Ambulatory nullFlavo [facility] [id number] Memoria 19:30:00 19:30:00 Pre-Reg r Cardiology 23 l [facility] 2019-01-10 2019-01-10 Observatio nullFlavo [facility] [id number] Memoria 07:15:00 19:51:00 n r Mo 12 [facility] 2018-12-24 2019-01-10 Recurring nullFlavo [facility] [id number] Memoria 21:59:00 19:42:[address] [place] 03 [facility] 2018-11-22 2018-12-22 Recurring nullFlavo [facility] [id number] Memoria 21:15:00 05:59:[address] [place] 02 [facility] 2018-10-22 2018-11-21 Recurring nullFlavo [facility] [id number] Memoria 21:39:00 05:59:[address] [place] 01 [facility] 2018-09-19 2018-10-19 Recurring nullFlavo [facility] [id number] Memoria 17:11:00 05:59:00 r Mo 00 [facility] 2018-10-08 2018-10-09 Outpatient nullFlavo [facility] [id number] Memoria 13:30:00 05:59:59 r Primary 21 [facility] 2018-10-03 2018-10-04 Outpatient nullFlavo [facility] [id number] Memoria 18:30:00 05:59:59 r Cardiology 19 [facility] 2018-10-01 2018-10-03 Phone nullFlavo [facility] [id number] Memoria 21:33:00 05:59:59 Message r Primary 01 [facility] 2018-10-01 2018-10-01 Ambulatory nullFlavo [facility] [id number] Memoria 13:30:00 13:30:00 Pre-Reg r Primary 20 [facility] 2018-09-27 2018-09-27 Observatio nullFlavo [facility] [id number] Memoria 17:06:00 20:45:00 n r Mo 19 [facility] 2018-09-27 2018-09-27 Emergency nullFlavo [facility] [id number] Memoria 03:37:00 08:45:00 r Mo 11 [facility] 2018-08-22 2018-08-22 Bedded nullFlavo [facility] [id number] Memoria 12:05:00 17:53:00 Outpatient r Mo 10 [facility] 2018-08-09 2018-08-09 Ambulatory nullFlavo [facility] [id number] Memoria 19:45:00 19:45:00 Pre-Reg r Primary 15 [facility] 2018-08-01 2018-08-02 Outpatient nullFlavo [facility] [id number] Memoria 18:15:00 04:59:59 r Cardiology 18 [facility] 2018-07-25 2018-07-26 Outpatient nullFlavo [facility] [id number] Memoria 15:00:00 04:59:59 r Cardiology 17 [facility] 2018-07-23 2018-07-24 Outpatient nullFlavo [facility] [id number] Memoria 19:30:00 04:59:59 r Cardiology 13 [facility] 2018-07-23 2018-07-24 Outpatient nullFlavo [facility] [id number] Memoria 17:30:00 04:59:59 r Cardiology 12 [facility] 2018-07-18 2018-07-19 Outpatient nullFlavo [facility] [id number] Memoria 16:30:00 04:59:59 r Cardiology 16 [facility] 2018-07-12 2018-07-13 [place] [id number] Memoria 13:30:00 04:59:59 r Primary 14 [facility] 2018-07-10 2018-07-12 Phone nullFlavo [facility] [id number] Memoria 14:02:00 04:59:59 Message r Primary 00 [facility] 2018-07-11 2018-07-11 Ambulatory nullFlavo [facility] [id number] Memoria 20:45:00 20:45:00 Pre-Reg r Cardiology 09 l [facility] 2018-07-10 2018-07-11 Outpatient nullFlavo [facility] [id number] Memoria 19:00:00 04:59:59 r Cardiology 11 l [facility] 2018-07-10 2018-07-10 [place] [id number] Memoria 18:15:00 18:15:00 Pre-Reg r Primary 10 l [facility] 2018-07-09 2018-07-09 Emergency nullFlavo [facility] [id number] Memoria 18:23:00 21:12:[address] [place] 08 [facility] 2018-06-07 2018-06-08 Outpatient nullFlavo [facility] [id number] Memoria 18:45:00 04:59:59 r Urology 08 [facility] 2018-05-30 2018-05-31 Outpatient nullFlavo [facility] [id number] Memoria 13:00:00 04:59:59 r Primary 07 l [facility] 2017-04-24 2017-04-24 Outpatient MHIE ALESSANDRO [id number] Memoria 15:45:00 15:45:00 05 [facility] 2017-04-21 2017-04-21 Outpatient MHIE MARIO [id number] Memoria 08:30:00 08:30:00 06 [facility] 2017-04-04 2017-04-05 Observatio nullFlavo [facility] [id number] Memoria 01:08:00 21:57:00 devon Hassan 04 [facility] 2017-03-16 2017-03-16 Outpatient MHIE MARIO [id number] Memoria 08:15:00 08:15:00 04 [facility] 2017-03-09 2017-03-10 Observatio nullFlavo [facility] [id number] Memoria 11:00:00 19:07:00 devon Hassan 03 [facility] 2017-03-09 2017-03-09 Outpatient MHIE MARIO [id number] Memoria 07:00:00 07:00:[address] [place] 2017-02-16 2017-02-16 Outpatient MHIE MARIO [id number] Memoria 14:30:00 14:30:00 02 radah Hassan 2016-08-25 2016-08-25 Outpatient [facility] [id number] Memoria 08:00:00 08:00:00 01 radha Hassan 2016-02-24 2016-02-24 Outpatient [facility] [id number] Memoria 08:00:00 08:00:00 00 radha Hassan 2016-02-10 2016-02-11 Outpt Diag nullFlavo [facility] [id number] Memoria 22:25:00 04:59:00 Services r Outpatient 01 radha Celeste Results Test Description Test Time Test Comments Results Result Comments Source SPECIAL CHEMISTRY 2021-04-21 16:22:00 Test Item Value Reference Range Interpretation Comme nts PSA (test code = PSA) 2.5 [facility] AND [id number] 15:47:00 Test Item Value Reference Range Interpretation Comments POC UA Color (test Yellow *NA*(04/21/21 code = POC UA Color) 10:47 AM) [facility] [id number] 15:47:00 Test Item Value Reference Range Interpretation Comments POC UA Turbidity (test Clear *NA*(04/21/21 code = POC UA Turbidity) 10:47 AM) [facility]ann[facility] AND [id number] 15:47:00 Test Item Value Reference Range Interpretation Comments POC UA SG (test code = POC UA SG) 1.015 1 [facility]ann[facility]INE AND [id number] 15:47:00 Test Item Value Reference Range Interpretation Comments POC UA pH (test code = POC UA pH) 7.0 1 5.0-8.0 [facility] AND [id number] 15:47:00 Test Item Value Reference Range Interpretation Comments POC UA Prot (test code = POC Negative mg/dL UA Prot) [facility] AND [id number] 15:47:00 Test Item Value Reference Range Interpretation Comments POC UA Glu (test code = POC UA Negative mg/dL Glu) [facility] [id number] 15:47:00 Test Item Value Reference Range Interpretation Comments POC UA Ket (test code = POC UA Negative mg/dL Ket) [facility] [id number] 15:47:00 Test Item Value Reference Range Interpretation Comments POC UA Bili (test Negative *NA*(04/21/21 code = POC UA Bili) 10:47 AM) [facility] AND [id number] 15:47:00 Test Item Value Reference Range Interpretation Comments POC UA Bld (test code Negative *NA*(04/21/21 = POC UA Bld) 10:47 AM) [facility] AND [id number] 15:47:00 Test Item Value Reference Range Interpretation Comments POC UA Uro (test code = POC UA Uro) 0.2 0.1-1.0 [facility] AND [id number] 15:47:00 Test Item Value Reference Range Interpretation Comments POC UA Nit (test code Negative *NA*(04/21/21 = POC UA Nit) 10:47 AM) [facility] AND [id number] 15:47:00 Test Item Value Reference Range Interpretation Comments POC UA LeukEst (test Negative *NA*(04/21/21 code = POC UA LeukEst) 10:47 AM) [facility]2021-03-31 19:36:00 Test Item Value Reference Range Interpretation Comments Vitamin B12 Lvl (test code = Vitamin 752 822-1278 B12 Lvl) [facility]2021-03-31 19:36:00 Test Item Value Reference Range Interpretation Comments Vitamin D, 25-OH, Total (test code = 24 30-100 Vitamin D, 25-OH, Total) [id number] 19:36:00 Test Item Value Reference Range Interpretation Comments Testosterone Tot (test code = 389 250-827 Testosterone Tot) [id number] 19:36:00 Test Item Value Reference Range Interpretation Comments WBC X 10x3 (test code = WBC X 10x3) 5.5 3.8-10.8 [facility] [id number] 19:36:00 Test Item Value Reference Range Interpretation Comments RBC X 10x6 (test code = RBC X 10x6) 4.56 4.20-5.80 [facility] [id number] 19:36:00 Test Item Value Reference Range Interpretation Comments Hgb (test code = Hgb) 14.0 13.2-17.1 [facility] HospitalTzclwzcBGQFPKAAGS4535-03-28 19:36:00 Test Item Value Reference Range Interpretation Comments Hct (test code = Hct) 42.0 38.5-50.0 [place] 291991-03-31 19:36:00 Test Item Value Reference Range Interpretation Comments MCV (test code = MCV) 92.1 80.0-100.0 [place] 291991-03-31 19:36:00 Test Item Value Reference Range Interpretation Comments MCH (test code = MCH) 30.7 pg 27.0-33.0 [place] 291991-03-31 19:36:00 Test Item Value Reference Range Interpretation Comments MCHC (test code = MCHC) 33.3 32.0-36.0 [place] 291991-03-31 19:36:00 Test Item Value Reference Range Interpretation Comments RDW (test code = RDW) 13.3 11.0-15.0 [place] 291991-03-31 19:36:00 Test Item Value Reference Range Interpretation Comments Platelet (test code = Platelet) 145 140-400 [place] 291991-03-31 19:36:00 Test Item Value Reference Range Interpretation Comments MPV (test code = MPV) 12.7 7.5-12.5 [place] 291991-03-31 19:36:00 Test Item Value Reference Range Interpretation Comments Neutrophils # (test code = Neutrophils 3251 3622-5235 #) [id number] 19:36:00 Test Item Value Reference Range Interpretation Comments Lymphocytes # (test code = Lymphocytes 1428 110-7727 #) [place] 291991-03-31 19:36:00 Test Item Value Reference Range Interpretation Comments Monocytes # (test code = Monocytes #) 506 200-950 [place] 291991-03-31 19:36:00 Test Item Value Reference Range Interpretation Comments Eosinophils # (test code = Eosinophils 132 15-500 #) [facility] Hos[id number] 19:36:00 Test Item Value Reference Range Interpretation Comments Basophils # (test code 50 See_Comment [Aut omated message] The = Basophils #) system which generated this result tra nsmitted reference range : <=200. The reference r alva was not used to int erpret this result as normal/abnormal . [place] 291991-03-31 19:36:00 Test Item Value Reference Range Interpretation Comments Segs (test code = Segs) 59.1 [id number] 19:36:00 Test Item Value Reference Range Interpretation Comments Lymphocytes (test code = Lymphocytes) 28.4 [id number] 19:36:00 Test Item Value Reference Range Interpretation Comments Monocytes (test code = Monocytes) 9.2 [id number] 19:36:00 Test Item Value Reference Range Interpretation Comments Eosinophils (test code = Eosinophils) 2.4 [id number] 19:36:00 Test Item Value Reference Range Interpretation Comments Basophils (test code = Basophils) 0.9 [employer] [id number] 16:29:00 Test Item Value Reference Range Interpretation Comments ABO/Rh (test code = ABO/Rh) O POS [facility] [employer] [id number] 16:29:00 Test Item Value Reference Range Interpretation Comments Antibody Scrn (test Negative (12/02/20 code = Antibody Scrn) 10:29 AM) [facility] [employer] [id number] 16:29:00 Test Item Value Reference Range Interpretation Comments Glucose Lvl (test code = Glucose Lvl) 103 70-99 [facility] [employer] [id number] 16:29:00 Test Item Value Reference Range Interpretation Comments BUN (test code = BUN) 24 7-22 [facility] [employer] [id number] 16:29:00 Test Item Value Reference Range Interpretation Comments Creatinine Lvl (test code = Creatinine 1.19 0.50-1.40 Lvl) [facility] [employer] [id number] 16:29:00 Test Item Value Reference Range Interpretation Comments Sodium Lvl (test code = Sodium Lvl) 140 135-145 [facility] [employer] [id number] 16:29:00 Test Item Value Reference Range Interpretation Comments Potassium Lvl (test code = Potassium 4.6 3.5-5.1 Lvl) [facility] [employer] [id number] 16:29:00 Test Item Value Reference Range Interpretation Comments Chloride Lvl (test code = Chloride Lvl) 109 95-109 [facility] [employer] [id number] 16:29:00 Test Item Value Reference Range Interpretation Comments CO2 (test code = CO2) 26 24-32 [facility]2021-01-20 16:29:00 Test Item Value Reference Range Interpretation Comments Calcium Lvl (test code = Calcium Lvl) 9.2 8.5-10.5 [facility] [facility]21-01-20 16:29:00 Test Item Value Reference Range Interpretation Comments AGAP (test code = AGAP) 9.6 10.0-20.0 [facility]2021-01-20 16:29:00 Test Item Value Reference Range Interpretation Comments eGFR (test code = eGFR) 63 [facility]EdxrzvrUOCWNDUKXX9658-05-36 16:29:00 Test Item Value Reference Range Interpretation Comments WBC (test code = WBC) 5.1 3.7-10.4 [facility] HospitalDfwhzusNDKSIIEPPF8358-28-74 16:29:00 Test Item Value Reference Range Interpretation Comments RBC (test code = RBC) 4.72 4.70-6.10 [facility] HospitalZrnknerJDROPJZLLS6597-26-00 16:29:00 Test Item Value Reference Range Interpretation Comments Hgb (test code = Hgb) 14.6 14.0-18.0 [facility] HospitalKaovnngFXPMCKPXPQ0058-00-18 16:29:00 Test Item Value Reference Range Interpretation Comments Hct (test code = Hct) 43.2 42.0-54.0 [facility] HospitalZujvbscQXWRFHUXBQ8721-55-44 16:29:00 Test Item Value Reference Range Interpretation Comments MCV (test code = MCV) 91.5 80.0-94.0 [facility] HospitalFwlakrzABUHZNKWWO0650-10-33 16:29:00 Test Item Value Reference Range Interpretation Comments MCH (test code = MCH) 31.0 pg 27.0-31.0 [facility] HospitalQuqngzxMQYQOMOGMW2509-34-91 16:29:00 Test Item Value Reference Range Interpretation Comments MCHC (test code = MCHC) 33.8 32.0-36.0 [place] 291991-01-20 16:29:00 Test Item Value Reference Range Interpretation Comments RDW (test code = RDW) 14.0 11.5-14.5 [place] 291991-01-20 16:29:00 Test Item Value Reference Range Interpretation Comments Platelet (test code = Platelet) 119 133-450 [facility] HospitalVzmijnpGHVAIZCQQA7166-79-31 16:29:00 Test Item Value Reference Range Interpretation Comments MPV (test code = MPV) 10.5 7.4-10.4 [place] 291991-01-20 16:29:00 Test Item Value Reference Range Interpretation Comments Segs (test code = Segs) 65.1 45.0-75.0 [place] 291991-01-20 16:29:00 Test Item Value Reference Range Interpretation Comments Lymphocytes (test code = Lymphocytes) 24.2 20.0-40.0 [place] 291991-01-20 16:29:00 Test Item Value Reference Range Interpretation Comments Monocytes (test code = Monocytes) 8.4 2.0-12.0 [place] 291991-01-20 16:29:00 Test Item Value Reference Range Interpretation Comments Eosinophils (test code = 1.6 See_Comment [A utomated message] The Eosinophils) system which ge nerated this result tra nsmitted reference range : <=4.0. The reference r alva was not used to int erpret this result as normal/abnormal . [facility] HospitalBssgitmQFVXIHWMLR9033-78-37 16:29:00 Test Item Value Reference Range Interpretation Comments Basophils (test code = 0.7 See_Comment [Aut omated message] The Basophils) system which ge nerated this result tra nsmitted reference range : <=1.0. The reference r alva was not used to int erpret this result as normal/abnormal . [facility] HospitalSzkcujeDKYUYXLKCD1733-31-84 16:29:00 Test Item Value Reference Range Interpretation Comments Neutrophils # (test code = Neutrophils 3.3 1.5-8.1 #) [facility] HospitalAbsdbswCCTNZPLKAH0168-26-38 16:29:00 Test Item Value Reference Range Interpretation Comments Lymphocytes # (test code = Lymphocytes 1.2 1.0-5.5 #) [place] 291991-01-20 16:29:00 Test Item Value Reference Range Interpretation Comments Monocytes # (test code 0.4 See_Comment [Aut omated message] The = Monocytes #) system which generated this result tra nsmitted reference range : <=0.8. The reference r alva was not used to int erpret this result as normal/abnormal . [place] 291991-01-20 16:29:00 Test Item Value Reference Range Interpretation Comments Eosinophils # (test code 0.1 See_Comment [A utomated message] The = Eosinophils #) system whic h generated this result tra nsmitted reference range : <=0.5. The reference r alva was not used to int erpret this result as normal/abnormal . [facility] [id number] 16:46:00 Test Item Value Reference Range Interpretation Comments Coronavirus (COVID-19) Detected ADRIENNE (test code = 2*ABN*(12/01/20 10:46 Coronavirus (COVID-19) AM) ADRIENNE) [facility] [id number] 19:28:00 Test Item Value Reference Range Interpretation Comments POC UA Color (test Yellow *NA*(08/17/20 code = POC UA Color) 2:28 PM) [facility] [id number] 19:28:00 Test Item Value Reference Range Interpretation Comments POC UA Turbidity (test Clear *NA*(08/17/20 code = POC UA Turbidity) 2:28 PM) [facility] [id number] 19:28:00 Test Item Value Reference Range Interpretation Comments POC UA SG (test code = POC UA SG) 1.025 1 [facility] [id number] 19:28:00 Test Item Value Reference Range Interpretation Comments POC UA pH (test code = POC UA pH) 6.5 1 5.0-8.0 [facility] [id number] 19:28:00 Test Item Value Reference Range Interpretation Comments POC UA Prot (test code = POC Negative mg/dL UA Prot) [facility] [id number] 19:28:00 Test Item Value Reference Range Interpretation Comments POC UA Glu (test code = POC UA Negative mg/dL Glu) [facility] [id number] 19:28:00 Test Item Value Reference Range Interpretation Comments POC UA Ket (test code = POC UA Negative mg/dL Ket) [facility] [id number] 19:28:00 Test Item Value Reference Range Interpretation Comments POC UA Bili (test Negative *NA*(08/17/20 code = POC UA Bili) 2:28 PM) [facility] [id number] 19:28:00 Test Item Value Reference Range Interpretation Comments POC UA Bld (test code Negative *NA*(08/17/20 = POC UA Bld) 2:28 PM) [facility] [id number] 19:28:00 Test Item Value Reference Range Interpretation Comments POC UA Uro (test code = POC UA Uro) 1.0 0.1-1.0 [facility] [id number] 19:28:00 Test Item Value Reference Range Interpretation Comments POC UA Nit (test code Negative *NA*(08/17/20 = POC UA Nit) 2:28 PM) [facility] [id number] 19:28:00 Test Item Value Reference Range Interpretation Comments POC UA LeukEst (test Negative *NA*(08/17/20 code = POC UA LeukEst) 2:28 PM) [facility] [id number] 14:47:00 Test Item Value Reference Range Interpretation Comments POC UA Color (test Yellow *NA*(04/08/20 code = POC UA Color) 9:47 AM) [facility] [id number] 14:47:00 Test Item Value Reference Range Interpretation Comments POC UA Turbidity (test Clear *NA*(04/08/20 code = POC UA Turbidity) 9:47 AM) [facility] [id number] 14:47:00 Test Item Value Reference Range Interpretation Comments POC UA SG (test code = POC UA SG) 1.010 1 [facility] [id number] 14:47:00 Test Item Value Reference Range Interpretation Comments POC UA pH (test code = POC UA pH) 6.0 1 5.0-8.0 [facility] [id number] 14:47:00 Test Item Value Reference Range Interpretation Comments POC UA Prot (test code = POC Negative mg/dL UA Prot) [facility] [id number] 14:47:00 Test Item Value Reference Range Interpretation Comments POC UA Glu (test code = POC UA Negative mg/dL Glu) [facility] [id number] 14:47:00 Test Item Value Reference Range Interpretation Comments POC UA Ket (test code = POC UA Negative mg/dL Ket) [facility] [id number] 14:47:00 Test Item Value Reference Range Interpretation Comments POC UA Bili (test Negative *NA*(04/08/20 code = POC UA Bili) 9:47 AM) [facility] [id number] 14:47:00 Test Item Value Reference Range Interpretation Comments POC UA Bld (test code Negative *NA*(04/08/20 = POC UA Bld) 9:47 AM) [facility] [id number] 14:47:00 Test Item Value Reference Range Interpretation Comments POC UA Uro (test code = POC UA Uro) 0.2 0.1-1.0 [facility] [id number] 14:47:00 Test Item Value Reference Range Interpretation Comments POC UA Nit (test code Negative *NA*(04/08/20 = POC UA Nit) 9:47 AM) [facility] [id number] 14:47:00 Test Item Value Reference Range Interpretation Comments POC UA LeukEst (test Negative *NA*(04/08/20 code = POC UA LeukEst) 9:47 AM) [facility] [id number] 19:56:00 Test Item Value Reference Range Interpretation Comments UA Color (test code = UA Color) YELLOW [facility] [id number] 19:56:00 Test Item Value Reference Range Interpretation Comments UA Turbidity (test code = UA Turbidity) CLEAR [facility] AND [id number] 19:56:00 Test Item Value Reference Range Interpretation Comments UA Spec Grav (test code = UA Spec 1.010 1 1.001-1.035 Grav) [facility] AND [id number] 19:56:00 Test Item Value Reference Range Interpretation Comments UA pH (test code = UA pH) < OR = 5.0 5.0-8.0 [facility] [id number] 19:56:00 Test Item Value Reference Range Interpretation Comments UA Glucose (test code = UA Glucose) NEGATIVE [facility] [id number] 19:56:00 Test Item Value Reference Range Interpretation Comments UA Bili (test code = UA Bili) NEGATIVE [facility] [id number] 19:56:00 Test Item Value Reference Range Interpretation Comments UA Ketones (test code = UA Ketones) NEGATIVE [facility] [id number] 19:56:00 Test Item Value Reference Range Interpretation Comments UA Blood (test code = UA Blood) NEGATIVE [facility] [id number] 19:56:00 Test Item Value Reference Range Interpretation Comments UA Protein (test code = UA Protein) NEGATIVE [facility] [id number] 19:56:00 Test Item Value Reference Range Interpretation Comments UA Nitrite (test code = UA Nitrite) NEGATIVE [facility] [id number] 19:56:00 Test Item Value Reference Range Interpretation Comments UA Leuk Est (test code = UA Leuk NEGATIVE Est) [facility] [id number] 19:56:00 Test Item Value Reference Range Interpretation Comments UA WBC (test code = UA WBC) NONE SEEN [facility] [id number] 19:56:00 Test Item Value Reference Range Interpretation Comments UA RBC (test code = UA RBC) NONE SEEN [facility] [id number] 19:56:00 Test Item Value Reference Range Interpretation Comments UA Sq Epi (test code = UA Sq Epi) NONE SEEN [facility] [id number] 19:56:00 Test Item Value Reference Range Interpretation Comments UA Bacteria (test code = UA NONE SEEN Bacteria) [facility] [id number] 19:56:00 Test Item Value Reference Range Interpretation Comments UA Hyal Cast (test code = UA Hyal NONE SEEN Cast) [facility] [id number] 19:56:00 Test Item Value Reference Range Interpretation Comments Result 3 (Urine Culture) NO CULTURE INDICATED (test code = Result 3 (Urine Culture)) [facility] [id number] 14:02:00 Test Item Value Reference Range Interpretation Comments UA Color (test code = Yellow *NA*(01/17/20 8:02 UA Color) AM) [facility] [id number] 14:02:00 Test Item Value Reference Range Interpretation Comments UA Turbidity (test code = Clear (01/17/20 8:02 UA Turbidity) AM) [facility] [id number] 14:02:00 Test Item Value Reference Range Interpretation Comments UA Spec Grav (test code = UA Spec 1.011 1 Grav) [facility] [id number] 14:02:00 Test Item Value Reference Range Interpretation Comments UA pH (test code = UA pH) 7.0 1 5.0-8.0 [facility] AND [id number] 14:02:00 Test Item Value Reference Range Interpretation Comments UA Protein (test code = UA Negative mg/dL Protein) [facility] [id number] 14:02:00 Test Item Value Reference Range Interpretation Comments UA Glucose (test code = UA Negative mg/dL Glucose) [facility] [id number] 14:02:00 Test Item Value Reference Range Interpretation Comments UA Bili (test code = Negative *NA*(01/17/20 UA Bili) 8:02 AM) [facility] AND [id number] 14:02:00 Test Item Value Reference Range Interpretation Comments UA Blood (test code = Small *ABN*(01/17/20 UA Blood) 8:02 AM) [facility] AND [id number] 14:02:00 Test Item Value Reference Range Interpretation Comments UA Nitrite (test code Negative (01/17/20 8:02 = UA Nitrite) AM) [facility] AND [id number] 14:02:00 Test Item Value Reference Range Interpretation Comments UA Leuk Est (test Negative (01/17/20 8:02 code = UA Leuk Est) AM) [facility] AND [id number] 14:02:00 Test Item Value Reference Range Interpretation Comments UA WBC (test code = no gt See_Comment [Automa aime message] The UA WBC) system which ge nerated this result transmit aime reference range : <=5. The reference range was not used to interpr et this result as sincere l/abnormal. [facility] [id number] 14:02:00 Test Item Value Reference Range Interpretation Comments UA RBC (test code = no gt See_Comment [Automa aime message] The UA RBC) system which ge nerated this result transmit aime reference range : <=2. The reference range was not used to interpr et this result as sincere l/abnormal. [facility] [id number] 14:02:00 Test Item Value Reference Range Interpretation Comments UA Sq Epi (test code = UA Sq Epi) None Seen [facility] AND [id number] 14:02:00 Test Item Value Reference Range Interpretation Comments UA Ketones (test code = UA Ketones) Negative [facility] [id number] 14:02:00 Test Item Value Reference Range Interpretation Comments UA Urobilinogen (test code = UA <=1.0 mg/dL 0.1-1.0 Urobilinogen) [facility] [id number] 10:43:00 Test Item Value Reference Range Interpretation Comments Total CK (test code = Total CK) 219 12-191 [facility] [id number] 10:43:00 Test Item Value Reference Range Interpretation Comments Troponin-I (test code no gt See_Comment [Auto mated message] The = Troponin-I) system which g enerated this result transmit aime reference range : <=0.40. The reference r alva was not used to interpr et this result as sincere l/abnormal. [facility] UptownKloodAC [id number] 10:43:00 Test Item Value Reference Range Interpretation Comments BNP (test code = BNP) 8 [facility] [id number] 10:43:00 Test Item Value Reference Range Interpretation Comments Glucose Lvl (test code = Glucose Lvl) 104 70-99 [facility] [id number] 10:43:00 Test Item Value Reference Range Interpretation Comments Creatinine Lvl (test code = Creatinine 1.09 0.50-1.40 Lvl) [facility] [id number] 10:43:00 Test Item Value Reference Range Interpretation Comments Sodium Lvl (test code = Sodium Lvl) 143 135-145 [facility] [employer] [id number] 10:43:00 Test Item Value Reference Range Interpretation Comments Potassium Lvl (test code = Potassium 4.2 3.5-5.1 Lvl) [facility] [employer] [id number] 10:43:00 Test Item Value Reference Range Interpretation Comments Chloride Lvl (test code = Chloride Lvl) 113 95-109 [facility] [id number] 10:43:00 Test Item Value Reference Range Interpretation Comments CO2 (test code = CO2) 22 24-32 [facility] [id number] 10:43:00 Test Item Value Reference Range Interpretation Comments Calcium Lvl (test code = Calcium Lvl) 9.4 8.5-10.5 [facility]2020-03-06 10:43:00 Test Item Value Reference Range Interpretation Comments AGAP (test code = AGAP) 12.2 10.0-20.0 [facility]2020-03-06 10:43:00 Test Item Value Reference Range Interpretation Comments eGFR (test code = eGFR) 70 [facility]2020-03-06 10:43:00 Test Item Value Reference Range Interpretation Comments BUN (test code = BUN) 17 7-22 [facility] HospitalCkxolvlADNBWGRYVS2260-12-14 10:43:00 Test Item Value Reference Range Interpretation Comments WBC (test code = WBC) 5.6 3.7-10.4 [facility] HospitalIjqpjzbAJPBCJXEDV2718-01-70 10:43:00 Test Item Value Reference Range Interpretation Comments RBC (test code = RBC) 4.43 4.70-6.10 [facility] HospitalClnfeioHUEUEKNLBT4211-05-17 10:43:00 Test Item Value Reference Range Interpretation Comments Hgb (test code = Hgb) 13.8 14.0-18.0 [facility] H[id number] 10:43:00 Test Item Value Reference Range Interpretation Comments Hct (test code = Hct) 41.0 42.0-54.0 [facility] HospitalVhtnrwvQBVDQBLDMD4743-05-34 10:43:00 Test Item Value Reference Range Interpretation Comments MCV (test code = MCV) 92.6 80.0-94.0 [facility] HospitalVjpzppkGAICQGKOHY4344-54-92 10:43:00 Test Item Value Reference Range Interpretation Comments MCH (test code = MCH) 31.1 pg 27.0-31.0 [facility] HospitalVnmtwfzYUUJCWQNZD4592-28-49 10:43:00 Test Item Value Reference Range Interpretation Comments MCHC (test code = MCHC) 33.6 32.0-36.0 [facility] HospitalPildupvOJOXCXVCUV2124-87-49 10:43:00 Test Item Value Reference Range Interpretation Comments RDW (test code = RDW) 14.4 11.5-14.5 [facility] HospitalNhguuyoJOPVLRZKGZ2092-12-52 10:43:00 Test Item Value Reference Range Interpretation Comments Platelet (test code = Platelet) 137 133-450 [facility] HospitalYnuwowsBJMGRFCCBS7966-70-57 10:43:00 Test Item Value Reference Range Interpretation Comments MPV (test code = MPV) 10.7 7.4-10.4 [facility] HospitalIsryeohMMYUWMAAJJ8062-37-04 10:43:00 Test Item Value Reference Range Interpretation Comments PT (test code = PT) 12.3 s 12.0-14.7 [facility] HospitalHtnjgwcAZLUYFISXF3422-47-17 10:43:00 Test Item Value Reference Range Interpretation Comments INR (test code = INR) 0.92 1 0.85-1.17 [facility] HospitalXnzpcufGDESZHJMFS7861-46-41 10:43:00 Test Item Value Reference Range Interpretation Comments PTT (test code = PTT) 28.7 s 22.9-35.8 [facility] HospitalQkxqfynPOAUHPBWTE8582-15-04 10:43:00 Test Item Value Reference Range Interpretation Comments D-Dimer (test code = D-Dimer) 0.48 [facility] HospitalIdbswxqRJKQMVDOOG0632-46-47 10:43:00 Test Item Value Reference Range Interpretation Comments Segs (test code = Segs) 74.1 45.0-75.0 [facility] HospitalOxilfgfDDUOCTQCDD0338-89-56 10:43:00 Test Item Value Reference Range Interpretation Comments Lymphocytes (test code = Lymphocytes) 15.9 20.0-40.0 [facility] HospitalMefjhnaWVUOBLIRYZ8310-21-07 10:43:00 Test Item Value Reference Range Interpretation Comments Monocytes (test code = Monocytes) 7.7 2.0-12.0 [facility] HospitalZxrihblNPCURJDBXV0551-42-81 10:43:00 Test Item Value Reference Range Interpretation Comments Eosinophils (test code = 1.7 See_Comment [A utomated message] The Eosinophils) system which ge nerated this result tra nsmitted reference range : <=4.0. The reference r alva was not used to int erpret this result as normal/abnormal . [facility] HospitalRclhfunETMDZYTKFC1468-56-91 10:43:00 Test Item Value Reference Range Interpretation Comments Basophils (test code = 0.6 See_Comment [Aut omated message] The Basophils) system which ge nerated this result tra nsmitted reference range : <=1.0. The reference r alva was not used to int erpret this result as normal/abnormal . [facility] HospitalVjqdnmiQOQJLHSGQS2100-76-58 10:43:00 Test Item Value Reference Range Interpretation Comments Neutrophils # (test code = Neutrophils 4.2 1.5-8.1 #) [facility] HospitalBmctituAOCIPNYBGD7942-76-73 10:43:00 Test Item Value Reference Range Interpretation Comments Lymphocytes # (test code = Lymphocytes 0.9 1.0-5.5 #) [facility] HospitalXwierqmGDQIVLWVKF3152-28-59 10:43:00 Test Item Value Reference Range Interpretation Comments Monocytes # (test code 0.4 See_Comment [Aut omated message] The = Monocytes #) system which generated this result tra nsmitted reference range : <=0.8. The reference r alva was not used to int erpret this result as normal/abnormal . [facility] HospitalFjgxzkhRYQSUUALOY5787-16-97 10:43:00 Test Item Value Reference Range Interpretation Comments Eosinophils # (test code 0.1 See_Comment [A utomated message] The = Eosinophils #) system whic h generated this result tra nsmitted reference range : <=0.5. The reference r alva was not used to int erpret this result as normal/abnormal . [facility] AND [id number] 21:33:00 Test Item Value Reference Range Interpretation Comments Occult Bld, Fecal Negative (03/26/19 Immunoassay (test code = 4:33 PM) Occult Bld, Fecal Immunoassay) [facility] AND [id number] 20:27:00 Test Item Value Reference Range Interpretation Comments POC UA LeukEst (test Negative *NA*(02/21/19 code = POC UA LeukEst) 3:27 PM) [facility] AND [id number] 20:27:00 Test Item Value Reference Range Interpretation Comments POC UA Bili (test Negative *NA*(02/21/19 code = POC UA Bili) 3:27 PM) [facility] AND [id number] 20:27:00 Test Item Value Reference Range Interpretation Comments POC UA Nit (test code Negative *NA*(02/21/19 = POC UA Nit) 3:27 PM) [facility] AND [id number] 20:27:00 Test Item Value Reference Range Interpretation Comments POC UA Ket (test code = POC UA Negative mg/dL Ket) [facility] AND [id number] 20:27:00 Test Item Value Reference Range Interpretation Comments POC UA Glu (test code = POC UA Negative mg/dL Glu) [facility] AND [id number] 20:27:00 Test Item Value Reference Range Interpretation Comments POC UA Bld (test code Negative *NA*(02/21/19 = POC UA Bld) 3:27 PM) [facility] AND [id number] 20:27:00 Test Item Value Reference Range Interpretation Comments POC UA Uro (test code = POC UA Uro) 1.0 0.1-1.0 [facility] AND [id number] 20:27:00 Test Item Value Reference Range Interpretation Comments POC UA SG (test code = POC UA SG) 1.015 1 [facility] AND [id number] 20:27:00 Test Item Value Reference Range Interpretation Comments POC UA Turbidity (test Clear *NA*(02/21/19 code = POC UA Turbidity) 3:27 PM) [facility] AND [id number] 20:27:00 Test Item Value Reference Range Interpretation Comments POC UA Prot (test code = POC Negative mg/dL UA Prot) [facility] AND [id number] 20:27:00 Test Item Value Reference Range Interpretation Comments POC UA pH (test code = POC UA pH) 5.5 1 5.0-8.0 [facility] AND [id number] 20:27:00 Test Item Value Reference Range Interpretation Comments POC UA Color (test Yellow *NA*(02/21/19 code = POC UA Color) 3:27 PM) [facility] [id number] 17:33:00 Test Item Value Reference Range Interpretation Comments Troponin-I (test code no gt See_Comment [Auto mated message] The = Troponin-I) system which g enerated this result transmit aime reference range : <=0.40. The reference r alva was not used to interpr et this result as sincere l/abnormal. [facility] [id number] 09:00:00 Test Item Value Reference Range Interpretation Comments BNP (test code = BNP) 6 [facility]ARD[facility] [id number] 09:00:00 Test Item Value Reference Range Interpretation Comments Troponin-I (test code no gt See_Comment [Auto mated message] The = Troponin-I) system which g enerated this result transmit aime reference range : <=0.40. The reference r alva was not used to interpr et this result as sincere l/abnormal. [facility] [id number] 09:00:00 Test Item Value Reference Range Interpretation Comments Total CK (test code = Total CK) 294 12-191 [facility]2019-02-28 09:00:00 Test Item Value Reference Range Interpretation Comments Magnesium Lvl (test code = Magnesium 2.1 1.8-2.4 Lvl) [facility]2019-02-28 09:00:00 Test Item Value Reference Range Interpretation Comments Globulin (test code = Globulin) 3.5 2.7-4.2 [facility]2019-02-28 09:00:00 Test Item Value Reference Range Interpretation Comments A/G Ratio (test code = A/G Ratio) 1.0 1 0.7-1.6 [facility]2019-02-28 09:00:00 Test Item Value Reference Range Interpretation Comments B/C Ratio (test code = B/C Ratio) 24 1 6-25 [facility] [id number] 09:00:00 Test Item Value Reference Range Interpretation Comments AGAP (test code = AGAP) 12.1 10.0-20.0 [facility]2019-02-28 09:00:00 Test Item Value Reference Range Interpretation Comments BUN (test code = BUN) 22 7-22 [facility]2019-02-28 09:00:00 Test Item Value Reference Range Interpretation Comments Bili Total (test code = Bili Total) 0.9 0.2-1.3 [facility] [id number] 09:00:00 Test Item Value Reference Range Interpretation Comments Total Protein (test code = Total 7.1 6.4-8.4 Protein) [facility]2019-02-28 09:00:00 Test Item Value Reference Range Interpretation Comments Alk Phos (test code = Alk Phos) 87 39-136 [facility] [id number] 09:00:00 Test Item Value Reference Range Interpretation Comments eGFR (test code = eGFR) 85 [facility] [id number] 09:00:00 Test Item Value Reference Range Interpretation Comments ALT (test code = ALT) 31 See_Comment [Auto mated message] The system which ge nerated this result transmit aime reference range : <=65. The reference range was not used to interpr et this result as sincere l/abnormal. [facility]2019-02-28 09:00:00 Test Item Value Reference Range Interpretation Comments Creatinine Lvl (test code = Creatinine 0.93 0.50-1.40 Lvl) [facility]2019-02-28 09:00:00 Test Item Value Reference Range Interpretation Comments CO2 (test code = CO2) 23 24-32 [facility]2019-02-28 09:00:00 Test Item Value Reference Range Interpretation Comments Calcium Lvl (test code = Calcium Lvl) 9.0 8.5-10.5 [facility]2019-02-28 09:00:00 Test Item Value Reference Range Interpretation Comments Albumin Lvl (test code = Albumin Lvl) 3.6 3.5-5.0 [facility]2019-02-28 09:00:00 Test Item Value Reference Range Interpretation Comments Chloride Lvl (test code = Chloride Lvl) 111 95-109 [facility]2019-02-28 09:00:00 Test Item Value Reference Range Interpretation Comments Sodium Lvl (test code = Sodium Lvl) 142 135-145 [facility]2019-02-28 09:00:00 Test Item Value Reference Range Interpretation Comments Potassium Lvl (test code = Potassium 4.1 3.5-5.1 Lvl) [facility]2019-02-28 09:00:00 Test Item Value Reference Range Interpretation Comments Glucose Lvl (test code = Glucose Lvl) 111 70-99 [facility]2019-02-28 09:00:00 Test Item Value Reference Range Interpretation Comments AST (test code = AST) 21 See_Comment [Auto mated message] The system which ge nerated this result transmit aime reference range : <=37. The reference range was not used to interpr et this result as sincere l/abnormal. [facility]DlxluiwYZDCKOFDKS2439-29-02 09:00:00 Test Item Value Reference Range Interpretation Comments MPV (test code = MPV) 10.5 7.4-10.4 [facility] HospitalSbxfcciXCJUILZYSN2040-32-65 09:00:00 Test Item Value Reference Range Interpretation Comments Platelet (test code = Platelet) 119 133-450 [facility] HospitalHebxzmuWLBOQCTASP3123-55-20 09:00:00 Test Item Value Reference Range Interpretation Comments RDW (test code = RDW) 14.4 11.5-14.5 [facility] HospitalUvzetbuPGHAPCRZCH6537-74-90 09:00:00 Test Item Value Reference Range Interpretation Comments MCHC (test code = MCHC) 33.8 32.0-36.0 [facility] HospitalTgkvdltMFVSMMLNHD4382-42-73 09:00:00 Test Item Value Reference Range Interpretation Comments MCH (test code = MCH) 31.0 pg 27.0-31.0 [facility] HospitalPqsdyreWZWQPXCAII4284-80-95 09:00:00 Test Item Value Reference Range Interpretation Comments MCV (test code = MCV) 91.8 80.0-94.0 [facility] HospitalXuxtvrcRERPZYCKMJ3888-50-00 09:00:00 Test Item Value Reference Range Interpretation Comments Hct (test code = Hct) 37.8 42.0-54.0 [facility] HospitalLapjkysNNQUVEPCHN0400-81-57 09:00:00 Test Item Value Reference Range Interpretation Comments Hgb (test code = Hgb) 12.8 14.0-18.0 [facility] HospitalEgpvuecXFRPXZZKPG0252-29-00 09:00:00 Test Item Value Reference Range Interpretation Comments RBC (test code = RBC) 4.12 4.70-6.10 [facility] HospitalVkqcqiaOMGITUCDFU9814-70-06 09:00:00 Test Item Value Reference Range Interpretation Comments WBC (test code = WBC) 5.0 3.7-10.4 [facility] HospitalAvrdrtxGTLDALVZWJ5731-62-66 09:00:00 Test Item Value Reference Range Interpretation Comments Monocytes # (test code 0.4 See_Comment [Aut omated message] The = Monocytes #) system which generated this result tra nsmitted reference range : <=0.8. The reference r alva was not used to int erpret this result as normal/abnormal . [facility] HospitalXzneaftMPQRQARUIL3680-23-43 09:00:00 Test Item Value Reference Range Interpretation Comments Lymphocytes # (test code = Lymphocytes 1.0 1.0-5.5 #) [facility] HospitalJftqglfGZHZQZZBWJ1540-35-27 09:00:00 Test Item Value Reference Range Interpretation Comments Neutrophils # (test code = Neutrophils 3.4 1.5-8.1 #) [facility] HospitalNnnubccJZGNEIBMTI8449-84-78 09:00:00 Test Item Value Reference Range Interpretation Comments Basophils (test code = 0.9 See_Comment [Aut omated message] The Basophils) system which ge nerated this result tra nsmitted reference range : <=1.0. The reference r alva was not used to int erpret this result as normal/abnormal . [facility] HospitalUqocyzoJIIRBCZEJU7592-23-52 09:00:00 Test Item Value Reference Range Interpretation Comments Eosinophils # (test code 0.2 See_Comment [A utomated message] The = Eosinophils #) system whic h generated this result tra nsmitted reference range : <=0.5. The reference r alva was not used to int erpret this result as normal/abnormal . [facility] HospitalNgphwhwZBWONFCNAL8571-38-82 09:00:00 Test Item Value Reference Range Interpretation Comments Monocytes (test code = Monocytes) 7.9 2.0-12.0 [facility] HospitalImsowkvKPUBTFPTKE1563-22-65 09:00:00 Test Item Value Reference Range Interpretation Comments Lymphocytes (test code = Lymphocytes) 20.3 20.0-40.0 [facility] HospitalNvhzawwSXXIPZSGRM0787-48-06 09:00:00 Test Item Value Reference Range Interpretation Comments Segs (test code = Segs) 67.7 45.0-75.0 [facility] HospitalBudygckOERSPERQKY1411-22-71 09:00:00 Test Item Value Reference Range Interpretation Comments Eosinophils (test code = 3.2 See_Comment [A utomated message] The Eosinophils) system which ge nerated this result tra nsmitted reference range : <=4.0. The reference r alva was not used to int erpret this result as normal/abnormal . [facility] [id number] 12:44:00 Test Item Value Reference Range Interpretation Comments Troponin-I (test code no gt See_Comment [Auto mated message] The = Troponin-I) system which g enerated this result transmit aime reference range : <=0.40. The reference r alva was not used to interpr et this result as sincere l/abnormal. [facility]enCHEM KLPDC9313-02-13 12:44:00 Test Item Value Reference Range Interpretation Comments Magnesium Lvl (test code = Magnesium 2.4 1.8-2.4 Lvl) [facility] [employer] As We AgeAC WQLWCXU4150-97-70 04:22:00 Test Item Value Reference Range Interpretation Comments Troponin-I (test code no gt See_Comment [Auto mated message] The = Troponin-I) system which g enerated this result transmit aime reference range : <=0.40. The reference r alva was not used to interpr et this result as sincere l/abnormal. [facility] [employer] [id number] 04:22:00 Test Item Value Reference Range Interpretation Comments Total CK (test code = Total CK) 259 12-191 [facility] [employer] GTBLOGL0462-72-08 04:22:00 Test Item Value Reference Range Interpretation Comments BNP (test code = BNP) 6 [facility] Narrative2018-11-15 04:22:00 Test Item Value Reference Range Interpretation Comments proBNP (test code = 20 See_Comment [Automa aime message] The proBNP) system which ge nerated this result tra nsmitted reference range : <=125. The reference r alva was not used to int erpret this result as sincere l/abnormal. [employer]2018-11-15 04:22:00 Test Item Value Reference Range Interpretation Comments AST (test code = AST) 19 See_Comment [Auto mated message] The system which ge nerated this result transmit aime reference range : <=37. The reference range was not used to interpr et this result as sincere l/abnormal. [employer]2018-11-15 04:22:00 Test Item Value Reference Range Interpretation Comments Bili Total (test code = Bili Total) 1.0 0.2-1.3 [facility] [employer]2018-11-15 04:22:00 Test Item Value Reference Range Interpretation Comments Alk Phos (test code = Alk Phos) 79 39-136 [facility] [employer]2018-11-15 04:22:00 Test Item Value Reference Range Interpretation Comments eGFR (test code = eGFR) 84 [facility] [employer]2018-11-15 04:22:00 Test Item Value Reference Range Interpretation Comments Calcium Lvl (test code = Calcium Lvl) 9.0 8.5-10.5 [facility] [employer]2018-11-15 04:22:00 Test Item Value Reference Range Interpretation Comments Total Protein (test code = Total 7.6 6.4-8.4 Protein) [facility]2018-11-15 04:22:00 Test Item Value Reference Range Interpretation Comments Albumin Lvl (test code = Albumin Lvl) 4.0 3.5-5.0 [facility]2018-11-15 04:22:00 Test Item Value Reference Range Interpretation Comments ALT (test code = ALT) 29 See_Comment [Auto mated message] The system which ge nerated this result transmit aime reference range : <=65. The reference range was not used to interpr et this result as sincere l/abnormal. [place] [id number] 04:22:00 Test Item Value Reference Range Interpretation Comments BUN (test code = BUN) 21 7-22 [facility]2018-11-15 04:22:00 Test Item Value Reference Range Interpretation Comments Glucose Lvl (test code = Glucose Lvl) 100 70-99 [facility]2018-11-15 04:22:00 Test Item Value Reference Range Interpretation Comments Chloride Lvl (test code = Chloride Lvl) 109 95-109 [facility]2018-11-15 04:22:00 Test Item Value Reference Range Interpretation Comments CO2 (test code = CO2) 23 24-32 [facility]2018-11-15 04:22:00 Test Item Value Reference Range Interpretation Comments Creatinine Lvl (test code = Creatinine 0.95 0.50-1.40 Lvl) [facility]2018-11-15 04:22:00 Test Item Value Reference Range Interpretation Comments Sodium Lvl (test code = Sodium Lvl) 141 135-145 [facility]2018-11-15 04:22:00 Test Item Value Reference Range Interpretation Comments Potassium Lvl (test code = Potassium 3.4 3.5-5.1 Lvl) [facility]2018-11-15 04:22:00 Test Item Value Reference Range Interpretation Comments A/G Ratio (test code = A/G Ratio) 1.1 1 0.7-1.6 [facility]2018-11-15 04:22:00 Test Item Value Reference Range Interpretation Comments AGAP (test code = AGAP) 12.4 10.0-20.0 [facility] [id number] 04:22:00 Test Item Value Reference Range Interpretation Comments B/C Ratio (test code = B/C Ratio) 22 1 6-25 [facility] [id number] 04:22:00 Test Item Value Reference Range Interpretation Comments Globulin (test code = Globulin) 3.6 2.7-4.2 [facility] HospitalEvaxymcERGARDXGQF1050-56-70 04:22:00 Test Item Value Reference Range Interpretation Comments RBC (test code = RBC) 4.43 4.70-6.10 [facility] HospitalEbyngqbREEXMQZVEV8224-85-90 04:22:00 Test Item Value Reference Range Interpretation Comments MCV (test code = MCV) 88.4 80.0-94.0 [facility] HospitalDnemspyGBFPLJCRON4530-97-71 04:22:00 Test Item Value Reference Range Interpretation Comments Hct (test code = Hct) 39.2 42.0-54.0 [facility] HospitalLpimvbzGCVHGHDJLP3359-07-88 04:22:00 Test Item Value Reference Range Interpretation Comments WBC (test code = WBC) 6.6 3.7-10.4 [facility] HospitalVyihyqjHHQYTTRKQJ6032-53-36 04:22:00 Test Item Value Reference Range Interpretation Comments MCH (test code = MCH) 31.2 pg 27.0-31.0 [facility] HospitalMcxrtbcNIEBSHEXJZ2667-52-41 04:22:00 Test Item Value Reference Range Interpretation Comments Hgb (test code = Hgb) 13.8 14.0-18.0 [facility] HospitalIygdiatDEXGLFWQGY6202-96-70 04:22:00 Test Item Value Reference Range Interpretation Comments Platelet (test code = Platelet) 125 133-450 [facility] HospitalXpbzqgnSSHGOXQKRW5813-51-35 04:22:00 Test Item Value Reference Range Interpretation Comments RDW (test code = RDW) 15.1 11.5-14.5 [facility] HospitalUaopipcIKDJMDHUYT9034-39-26 04:22:00 Test Item Value Reference Range Interpretation Comments MPV (test code = MPV) 10.8 7.4-10.4 [facility] HospitalDujkybqHATXRIBXOC0503-38-39 04:22:00 Test Item Value Reference Range Interpretation Comments MCHC (test code = MCHC) 35.3 32.0-36.0 [facility] HospitalZelacxmUFMJKDDZLE8945-25-74 04:22:00 Test Item Value Reference Range Interpretation Comments Basophils (test code = 0.5 See_Comment [Aut omated message] The Basophils) system which ge nerated this result tra nsmitted reference range : <=1.0. The reference r alva was not used to int erpret this result as normal/abnormal . [facility] HospitalSstcssxCRVDWZBOTB0211-48-89 04:22:00 Test Item Value Reference Range Interpretation Comments Neutrophils # (test code = Neutrophils 4.7 1.5-8.1 #) [facility] HospitalTuukuhkKAPYWEWGER6955-23-14 04:22:00 Test Item Value Reference Range Interpretation Comments Monocytes # (test code 0.5 See_Comment [Aut omated message] The = Monocytes #) system which generated this result tra nsmitted reference range : <=0.8. The reference r alva was not used to int erpret this result as normal/abnormal . [facility] HospitalSeqxkrdHXZZCAHHVH5857-64-19 04:22:00 Test Item Value Reference Range Interpretation Comments Lymphocytes # (test code = Lymphocytes 1.2 1.0-5.5 #) [facility] HospitalStuwqhuYSDMUMFJMT4344-46-30 04:22:00 Test Item Value Reference Range Interpretation Comments Monocytes (test code = Monocytes) 8.3 2.0-12.0 [facility] HospitalXtaroouXRVBICASJZ6923-74-41 04:22:00 Test Item Value Reference Range Interpretation Comments Lymphocytes (test code = Lymphocytes) 17.6 20.0-40.0 [facility] HospitalAncszcmEIHLZNGSXO7369-89-14 04:22:00 Test Item Value Reference Range Interpretation Comments Eosinophils (test code = 2.5 See_Comment [A utomated message] The Eosinophils) system which ge nerated this result tra nsmitted reference range : <=4.0. The reference r alva was not used to int erpret this result as normal/abnormal . [facility] HospitalPlegqcbESGZKBBWSE9305-71-59 04:22:00 Test Item Value Reference Range Interpretation Comments Eosinophils # (test code 0.2 See_Comment [A utomated message] The = Eosinophils #) system whic h generated this result tra nsmitted reference range : <=0.5. The reference r alva was not used to int erpret this result as normal/abnormal . [facility] HospitalEgfryveBQWPSTKGUJ5453-13-01 04:22:00 Test Item Value Reference Range Interpretation Comments Segs (test code = Segs) 71.1 45.0-75.0 [facility]enPuewnkzYMXDGEJUCU2129-21-57 04:22:00 Test Item Value Reference Range Interpretation Comments D-Dimer (test code = D-Dimer) 0.59 [facility]ZtmdsmzUGOASOIVZX5957-10-93 13:11:00 Test Item Value Reference Range Interpretation Comments POC Activated Clotting Time (test code 277 s = POC Activated Clotting Time) [facility] RZVYRAO0066-84-04 13:07:53 Test Item Value Reference Range Interpretation Comments Antibody Scrn (test Negative (08/22/18 code = Antibody Scrn) 8:07 AM) [facility] NSPYSPZ7226-59-47 13:07:53 Test Item Value Reference Range Interpretation Comments ABO/Rh (test code = ABO/Rh) O POS [facility]ARD[facility] YSCGLCM1033-51-22 12:51:00 Test Item Value Reference Range Interpretation Comments BNP (test code = BNP) 4 [facility]lakeYovifbyDSGFGWSDROXP3315-82-59 12:51:00 Test Item Value Reference Range Interpretation Comments AGAP (test code = AGAP) 13.6 10.0-20.0 [facility]lakePfeggnjDWBPJAWPZQNH3792-91-18 12:51:00 Test Item Value Reference Range Interpretation Comments Glucose Lvl (test code = Glucose Lvl) 110 70-99 [facility]lakeBjlieydTEVDWBMQGBRO6519-09-95 12:51:00 Test Item Value Reference Range Interpretation Comments BUN (test code = BUN) 20 7-22 [facility] SouthlakeGphubovEGYRIFPRTGSD9888-22-82 12:51:00 Test Item Value Reference Range Interpretation Comments Chloride Lvl (test code = Chloride Lvl) 108 95-109 [facility]lakeUrgqrmuNZPTFKDALCRL4979-13-24 12:51:00 Test Item Value Reference Range Interpretation Comments CO2 (test code = CO2) 25 24-32 [facility]lakeGdgwzagHOOOCCOSMIKM8864-31-86 12:51:00 Test Item Value Reference Range Interpretation Comments Sodium Lvl (test code = Sodium Lvl) 142 135-145 [facility]HjeyanxEMBFNRSREDDX3009-97-81 12:51:00 Test Item Value Reference Range Interpretation Comments Potassium Lvl (test code = Potassium 4.6 3.5-5.1 Lvl) [facility]LxypntcGPSFVETFCIUV9911-58-86 12:51:00 Test Item Value Reference Range Interpretation Comments Calcium Lvl (test code = Calcium Lvl) 9.3 8.5-10.5 [facility] JacksonXoirncuZZWLRKVJVSAO2369-74-01 12:51:00 Test Item Value Reference Range Interpretation Comments eGFR (test code = eGFR) 69 [facility] JacksonMbwmftaVNNLAEHRBKJJ1450-07-67 12:51:00 Test Item Value Reference Range Interpretation Comments Creatinine Lvl (test code = Creatinine 1.12 0.50-1.40 Lvl) [facility] HospitalFpgxtfoIYBESENYST2747-92-35 12:51:00 Test Item Value Reference Range Interpretation Comments Lymphocytes # (test code = Lymphocytes 1.2 1.0-5.5 #) [facility] HospitalEfkfrpcTRSQOMHSHA4099-78-05 12:51:00 Test Item Value Reference Range Interpretation Comments Eosinophils # (test code 0.1 See_Comment [A utomated message] The = Eosinophils #) system whic h generated this result tra nsmitted reference range : <=0.5. The reference r alva was not used to int erpret this result as normal/abnormal . [facility] HospitalIvddkpjDEWNENEBXY3484-45-19 12:51:00 Test Item Value Reference Range Interpretation Comments Monocytes # (test code 0.4 See_Comment [Aut omated message] The = Monocytes #) system which generated this result tra nsmitted reference range : <=0.8. The reference r alva was not used to int erpret this result as normal/abnormal . [facility] HospitalQugvcidLOILDTHPTH3484-17-78 12:51:00 Test Item Value Reference Range Interpretation Comments Eosinophils (test code = 1.6 See_Comment [A utomated message] The Eosinophils) system which ge nerated this result tra nsmitted reference range : <=4.0. The reference r alva was not used to int erpret this result as normal/abnormal . [facility] HospitalJvvkcfcIGCCFLGNQZ9711-11-83 12:51:00 Test Item Value Reference Range Interpretation Comments Monocytes (test code = Monocytes) 8.1 2.0-12.0 [facility] HospitalIhwguhwPCRAUOIFUA4516-41-93 12:51:00 Test Item Value Reference Range Interpretation Comments Segs (test code = Segs) 65.8 45.0-75.0 [facility] HospitalGofjzrePGSWIBUPGU0095-89-19 12:51:00 Test Item Value Reference Range Interpretation Comments Lymphocytes (test code = Lymphocytes) 23.9 20.0-40.0 [facility] HospitalDbtgsjeYWFWEWKJXO5066-46-13 12:51:00 Test Item Value Reference Range Interpretation Comments Neutrophils # (test code = Neutrophils 3.4 1.5-8.1 #) [facility] HospitalXsdzxsiLJEFJXKCPX2807-52-75 12:51:00 Test Item Value Reference Range Interpretation Comments Basophils (test code = 0.6 See_Comment [Aut omated message] The Basophils) system which ge nerated this result tra nsmitted reference range : <=1.0. The reference r alva was not used to int erpret this result as normal/abnormal . [facility] HospitalBqmsfrhJSKBGNWITF9521-09-98 12:51:00 Test Item Value Reference Range Interpretation Comments MCHC (test code = MCHC) 34.7 32.0-36.0 [facility] HospitalXgknrdfTHMXPTFHHR4877-65-71 12:51:00 Test Item Value Reference Range Interpretation Comments Platelet (test code = Platelet) 125 133-450 [facility] HospitalQszytgbDBWSWWLVAU3832-21-21 12:51:00 Test Item Value Reference Range Interpretation Comments RDW (test code = RDW) 15.0 11.5-14.5 [facility] HospitalVetfpdzYIXRFSZSWT4695-57-88 12:51:00 Test Item Value Reference Range Interpretation Comments MCH (test code = MCH) 30.9 pg 27.0-31.0 [facility] HospitalOmenkppBQOLXGMPEQ0372-14-85 12:51:00 Test Item Value Reference Range Interpretation Comments MCV (test code = MCV) 89.0 80.0-94.0 [facility] HospitalHtimnskVJYKPFRRZG8901-05-84 12:51:00 Test Item Value Reference Range Interpretation Comments MPV (test code = MPV) 10.6 7.4-10.4 [facility] HospitalMyirftuCUBYNKXNTQ3153-24-20 12:51:00 Test Item Value Reference Range Interpretation Comments RBC (test code = RBC) 4.71 4.70-6.10 [facility] HospitalZuswrdnLYATNBYCQJ2616-77-53 12:51:00 Test Item Value Reference Range Interpretation Comments Hgb (test code = Hgb) 14.5 14.0-18.0 [facility] HospitalRbkpezqDYOWHRCOUL3204-97-26 12:51:00 Test Item Value Reference Range Interpretation Comments WBC (test code = WBC) 5.2 3.7-10.4 [facility]ownExftirsLGBHCFIZWB6534-98-52 12:51:00 Test Item Value Reference Range Interpretation Comments Hct (test code = Hct) 41.9 42.0-54.0 [facility] [facility] [place]uvmoxkIRWEILOZAI0152-58-02 12:51:00 Test Item Value Reference Range Interpretation Comments INR (test code = INR) 0.96 1 0.85-1.17 [facility]PahbvwwZMKUWDWVLI8070-64-30 12:51:00 Test Item Value Reference Range Interpretation Comments PT (test code = PT) 12.8 s 12.0-14.7 [facility] [employer] [id number] 19:10:00 Test Item Value Reference Range Interpretation Comments Troponin-I (test code no gt See_Comment [Auto mated message] The = Troponin-I) system which g enerated this result transmit aime reference range : <=0.40. The reference r alav was not used to interpr et this result as sincere l/abnormal. [facility] Narrative2018-08-27 19:10:00 Test Item Value Reference Range Interpretation Comments Total CK (test code = Total CK) 188 12-191 [facility] [employer] [id number] 19:10:00 Test Item Value Reference Range Interpretation Comments B/C Ratio (test code = B/C Ratio) 15 1 6-25 [facility] [employer] [id number] 19:10:00 Test Item Value Reference Range Interpretation Comments A/G Ratio (test code = A/G Ratio) 1.0 1 0.7-1.6 [facility] [employer] [id number] 19:10:00 Test Item Value Reference Range Interpretation Comments Globulin (test code = Globulin) 3.9 2.7-4.2 [facility] [employer] [id number] 19:10:00 Test Item Value Reference Range Interpretation Comments AGAP (test code = AGAP) 12.7 10.0-20.0 [facility] [employer]2018-08-27 19:10:00 Test Item Value Reference Range Interpretation Comments eGFR (test code = eGFR) 69 [facility] [employer] [id number] 19:10:00 Test Item Value Reference Range Interpretation Comments Alk Phos (test code = Alk Phos) 86 39-136 [facility]2018-08-27 19:10:00 Test Item Value Reference Range Interpretation Comments AST (test code = AST) 24 See_Comment [Auto mated message] The system which ge nerated this result transmit aime reference range : <=37. The reference range was not used to interpr et this result as sincere l/abnormal. [facility]2018-08-27 19:10:00 Test Item Value Reference Range Interpretation Comments Bili Total (test code = Bili Total) 0.5 0.2-1.3 [facility]2018-08-27 19:10:00 Test Item Value Reference Range Interpretation Comments ALT (test code = ALT) 29 See_Comment [Auto mated message] The system which ge nerated this result transmit aime reference range : <=65. The reference range was not used to interpr et this result as sincere l/abnormal. [facility]2018-08-27 19:10:00 Test Item Value Reference Range Interpretation Comments Albumin Lvl (test code = Albumin Lvl) 3.8 3.5-5.0 [facility]2018-08-27 19:10:00 Test Item Value Reference Range Interpretation Comments Total Protein (test code = Total 7.7 6.4-8.4 Protein) [facility]2018-08-27 19:10:00 Test Item Value Reference Range Interpretation Comments CO2 (test code = CO2) 27 24-32 [facility]2018-08-27 19:10:00 Test Item Value Reference Range Interpretation Comments BUN (test code = BUN) 17 7-22 [facility]2018-08-27 19:10:00 Test Item Value Reference Range Interpretation Comments Creatinine Lvl (test code = Creatinine 1.12 0.50-1.40 Lvl) [facility]2018-08-27 19:10:00 Test Item Value Reference Range Interpretation Comments Glucose Lvl (test code = Glucose Lvl) 116 70-99 [facility]2018-08-27 19:10:00 Test Item Value Reference Range Interpretation Comments Calcium Lvl (test code = Calcium Lvl) 8.9 8.5-10.5 [facility]2018-08-27 19:10:00 Test Item Value Reference Range Interpretation Comments Chloride Lvl (test code = Chloride Lvl) 107 95-109 [facility]2018-08-27 19:10:00 Test Item Value Reference Range Interpretation Comments Potassium Lvl (test code = Potassium 3.7 3.5-5.1 Lvl) [facility]2018-08-27 19:10:00 Test Item Value Reference Range Interpretation Comments Sodium Lvl (test code = Sodium Lvl) 143 135-145 [facility]2018-08-27 19:10:00 Test Item Value Reference Range Interpretation Comments Magnesium Lvl (test code = Magnesium 1.9 1.8-2.4 Lvl) [facility] HospitalErqzecwIVVVLTBPHW3114-47-77 19:10:00 Test Item Value Reference Range Interpretation Comments Platelet (test code = Platelet) 120 133-450 [facility] HospitalRhzvljfCKMEQVLTKO6332-22-93 19:10:00 Test Item Value Reference Range Interpretation Comments RDW (test code = RDW) 14.3 11.5-14.5 [facility] HospitalXbntipvBWLDBKNRZE4305-70-46 19:10:00 Test Item Value Reference Range Interpretation Comments MCHC (test code = MCHC) 35.1 32.0-36.0 [facility] HospitalJklriasVPCCTPTXBC9651-95-85 19:10:00 Test Item Value Reference Range Interpretation Comments MPV (test code = MPV) 10.8 7.4-10.4 [facility] HospitalBaivhtqLOPBFWMGGJ5352-17-89 19:10:00 Test Item Value Reference Range Interpretation Comments RBC (test code = RBC) 4.45 4.70-6.10 [facility] HospitalAzyuzndUTPHGUXUYD7037-16-99 19:10:00 Test Item Value Reference Range Interpretation Comments Hgb (test code = Hgb) 13.8 14.0-18.0 [facility] HospitalVqnizluIYMXCQOPPW3816-18-22 19:10:00 Test Item Value Reference Range Interpretation Comments WBC (test code = WBC) 4.7 3.7-10.4 [facility] HospitalYjeriyzTRKWPNIINW5735-32-87 19:10:00 Test Item Value Reference Range Interpretation Comments MCV (test code = MCV) 88.2 80.0-94.0 [facility] HospitalJcmqlhwRIQYAWAUBW0243-20-61 19:10:00 Test Item Value Reference Range Interpretation Comments MCH (test code = MCH) 31.0 pg 27.0-31.0 [place] 766408-08-27 19:10:00 Test Item Value Reference Range Interpretation Comments Hct (test code = Hct) 39.2 42.0-54.0 [facility] HospitalNmmrjxuAULJHUIFMO5218-23-21 19:10:00 Test Item Value Reference Range Interpretation Comments Segs (test code = Segs) 59.5 45.0-75.0 [facility] HospitalGuqylxuDOAKBHIZTM4689-98-14 19:10:00 Test Item Value Reference Range Interpretation Comments Lymphocytes (test code = Lymphocytes) 26.5 20.0-40.0 [facility] HospitalWaqhfqiGFPCBUOWID3362-66-44 19:10:00 Test Item Value Reference Range Interpretation Comments Monocytes (test code = Monocytes) 9.9 2.0-12.0 [facility] HospitalWxxxlkmAMPGVEQHXT8579-07-41 19:10:00 Test Item Value Reference Range Interpretation Comments Eosinophils # (test code 0.2 See_Comment [A utomated message] The = Eosinophils #) system wh h generated this result tra nsmitted reference range : <=0.5. The reference r alva was not used to int erpret this result as normal/abnormal . [facility] HospitalYflirftVXALURUVPZ2545-24-14 19:10:00 Test Item Value Reference Range Interpretation Comments Neutrophils # (test code = Neutrophils 2.8 1.5-8.1 #) [facility] HospitalMgsyelyWSQDYIDZJF1984-06-16 19:10:00 Test Item Value Reference Range Interpretation Comments Basophils (test code = 0.7 See_Comment [Aut omated message] The Basophils) system which ge nerated this result tra nsmitted reference range : <=1.0. The reference r alva was not used to int erpret this result as normal/abnormal . [facility] HospitalAclpppnWQTOHQQQKA3838-98-18 19:10:00 Test Item Value Reference Range Interpretation Comments Eosinophils (test code = 3.4 See_Comment [A utomated message] The Eosinophils) system which ge nerated this result tra nsmitted reference range : <=4.0. The reference r alva was not used to int erpret this result as normal/abnormal . [facility] HospitalNacindcNRRDPXNPXI5526-89-41 19:10:00 Test Item Value Reference Range Interpretation Comments Monocytes # (test code 0.5 See_Comment [Aut omated message] The = Monocytes #) system which generated this result tra nsmitted reference range : <=0.8. The reference r alva was not used to int erpret this result as normal/abnormal . [facility] HospitalWcziphpOQLAFTZSNQ6667-75-05 19:10:00 Test Item Value Reference Range Interpretation Comments Lymphocytes # (test code = Lymphocytes 1.2 1.0-5.5 #) [facility] HospitalRmscnowTXNYTHERRN8227-00-46 19:10:00 Test Item Value Reference Range Interpretation Comments INR (test code = INR) 0.94 1 0.85-1.17 [facility] HospitalFgwosckMBVEHRMBUA6127-25-55 19:10:00 Test Item Value Reference Range Interpretation Comments PT (test code = PT) 12.6 s 12.0-14.7 [facility] HospitalOjpessaXCCCSXNVQL5964-49-03 19:10:00 Test Item Value Reference Range Interpretation Comments PTT (test code = PTT) 28.9 s 22.9-35.8 [facility]2017-05-24 10:19:00 Test Item Value Reference Range Interpretation Comments Magnesium Lvl (test code = Magnesium 2.3 1.8-2.4 Lvl) [facility]QsjdsdrQOFSSUTEEHGN3623-02-22 10:19:00 Test Item Value Reference Range Interpretation Comments AGAP (test code = AGAP) 11.2 10.0-20.0 [facility] JacksonKlvfjluSMDNIELZUVPW7331-77-74 10:19:00 Test Item Value Reference Range Interpretation Comments eGFR (test code = eGFR) 87 [facility] JacksonJmkqnccTIYFHXWZWCQP9625-26-67 10:19:00 Test Item Value Reference Range Interpretation Comments Calcium Lvl (test code = Calcium Lvl) 8.7 8.5-10.5 [facility] JacksonJpgqvdhSLMZDHOMWWQF0489-54-03 10:19:00 Test Item Value Reference Range Interpretation Comments CO2 (test code = CO2) 26 24-32 [facility] JacksonNiduwcyQHATWSPJAXHE5622-04-06 10:19:00 Test Item Value Reference Range Interpretation Comments Glucose Lvl (test code = Glucose Lvl) 108 70-99 [facility] JacksonSyujegaZXGWIGNRQOMT8502-62-44 10:19:00 Test Item Value Reference Range Interpretation Comments Potassium Lvl (test code = Potassium 4.2 3.5-5.1 Lvl) [facility] JacksonBocxgckMENNKORNQKHR8398-09-96 10:19:00 Test Item Value Reference Range Interpretation Comments Chloride Lvl (test code = Chloride Lvl) 111 95-109 [facility] JacksonBrjbwrnDCASOUQXNVVZ4359-51-84 10:19:00 Test Item Value Reference Range Interpretation Comments Creatinine Lvl (test code = Creatinine 0.93 0.50-1.40 Lvl) [facility] JacksonNwsxzppDYBWTPKGEGKI0643-04-52 10:19:00 Test Item Value Reference Range Interpretation Comments Sodium Lvl (test code = Sodium Lvl) 144 135-145 [facility] JacksonIivxzuhVRGULSAKQYKQ9409-74-90 10:19:00 Test Item Value Reference Range Interpretation Comments BUN (test code = BUN) 13 7-22 [facility] HospitalAylogayOYBPAKEBUG3600-79-62 10:19:00 Test Item Value Reference Range Interpretation Comments Segs-Bands # (test code = Segs-Bands #) 3.9 1.5-8.1 [facility] HospitalNozoedjOLKDNDZXYI0705-52-39 10:19:00 Test Item Value Reference Range Interpretation Comments Lymphocytes # (test code = Lymphocytes 1.4 1.0-5.5 #) [facility] HospitalJggweggUDRIQZLAMR2641-45-34 10:19:00 Test Item Value Reference Range Interpretation Comments Monocytes (test code = Monocytes) 7.7 2.0-12.0 [facility] HospitalPfwemckWWXTXFYCKZ6998-91-88 10:19:00 Test Item Value Reference Range Interpretation Comments Eosinophils (test code = 4.2 See_Comment [A utomated message] The Eosinophils) system which ge nerated this result tra nsmitted reference range : <=4.0. The reference r alva was not used to int erpret this result as normal/abnormal . [facility] HospitalWwhxqqxEBGUMREHSX0820-66-78 10:19:00 Test Item Value Reference Range Interpretation Comments Basophils (test code = 0.5 See_Comment [Aut omated message] The Basophils) system which ge nerated this result tra nsmitted reference range : <=1.0. The reference r alva was not used to int erpret this result as normal/abnormal . [facility] HospitalSpnxzrtLPGFLFMXJM4464-66-60 10:19:00 Test Item Value Reference Range Interpretation Comments Monocytes # (test code 0.5 See_Comment [Aut omated message] The = Monocytes #) system which generated this result tra nsmitted reference range : <=0.8. The reference r alva was not used to int erpret this result as normal/abnormal . [facility] HospitalXhafaowJAXGIDIIMQ9357-46-63 10:19:00 Test Item Value Reference Range Interpretation Comments Eosinophils # (test code 0.3 See_Comment [A utomated message] The = Eosinophils #) system whic h generated this result tra nsmitted reference range : <=0.5. The reference r alva was not used to int erpret this result as normal/abnormal . [facility] HospitalIgtudasWETMVNPPZN4937-74-79 10:19:00 Test Item Value Reference Range Interpretation Comments Segs (test code = Segs) 63.8 45.0-75.0 [facility] HospitalNyrikohIIIUKGIFEV6047-94-59 10:19:00 Test Item Value Reference Range Interpretation Comments Lymphocytes (test code = Lymphocytes) 23.8 20.0-40.0 [facility] HospitalKxtuotqAUIIILAHZS7036-22-03 10:19:00 Test Item Value Reference Range Interpretation Comments MCV (test code = MCV) 88.7 80.0-94.0 [facility] HospitalKynmxsrNCWNCZSSNN5975-67-50 10:19:00 Test Item Value Reference Range Interpretation Comments MCH (test code = MCH) 30.3 pg 27.0-31.0 [facility] HospitalUbnnggyKUHTGYPXJE5142-32-77 10:19:00 Test Item Value Reference Range Interpretation Comments MCHC (test code = MCHC) 34.2 32.0-36.0 [facility] HospitalFsayjdqLZOADFUSIE1475-81-52 10:19:00 Test Item Value Reference Range Interpretation Comments RDW (test code = RDW) 14.7 11.5-14.5 [facility] HospitalGtqvuosOLCCAMTONO1617-55-60 10:19:00 Test Item Value Reference Range Interpretation Comments Platelet (test code = Platelet) 101 133-450 [facility] HospitalBjwpuouQPHUCEHIWL4815-70-36 10:19:00 Test Item Value Reference Range Interpretation Comments MPV (test code = MPV) 10.7 7.4-10.4 [facility] HospitalVzwlfvdSEJRHFVGZV4508-73-00 10:19:00 Test Item Value Reference Range Interpretation Comments WBC (test code = WBC) 6.0 3.7-10.4 [facility] HospitalKahmdkdETQLXFGQWF1421-19-61 10:19:00 Test Item Value Reference Range Interpretation Comments RBC (test code = RBC) 3.43 4.70-6.10 [facility] HospitalWrscsmjOAMLLDFJUJ9420-53-50 10:19:00 Test Item Value Reference Range Interpretation Comments Hgb (test code = Hgb) 10.4 14.0-18.0 [facility] HospitalStmgjatXVVVKXTSXG2235-08-25 10:19:00 Test Item Value Reference Range Interpretation Comments Hct (test code = Hct) 30.4 42.0-54.0 [facility] HospitalRgznnbgEYUXFPPUNH8745-90-05 00:57:00 Test Item Value Reference Range Interpretation Comments Hgb (test code = Hgb) 11.3 14.0-18.0 [facility] HospitalQxwifhuOSBOGPDPOB5251-15-22 00:57:00 Test Item Value Reference Range Interpretation Comments Hct (test code = Hct) 33.2 42.0-54.0 [facility] [employer] YGNHJNL1261-96-93 19:20:00 Test Item Value Reference Range Interpretation Comments Antibody Scrn (test Negative (04/04/17 2:20 code = Antibody Scrn) PM) [facility] [employer] BANNER WEWYSVY2023-90-77 19:20:00 Test Item Value Reference Range Interpretation Comments ABO/Rh (test code = ABO/Rh) O POS [facility]enDqaglkeMDHJBWTIPY9332-76-48 19:20:00 Test Item Value Reference Range Interpretation Comments Hgb (test code = Hgb) 11.5 14.0-18.0 [facility]ownHodxexqEQQSZVANSO9928-03-30 19:20:00 Test Item Value Reference Range Interpretation Comments Hct (test code = Hct) 33.2 42.0-54.0 [facility] [employer] ENYYS8480-37-71 08:59:00 Test Item Value Reference Range Interpretation Comments Magnesium Lvl (test code = Magnesium 2.1 1.8-2.4 Lvl) [facility]ownSignalPoint Communications TTXTQ7217-88-66 08:59:00 Test Item Value Reference Range Interpretation Comments Phosphorus (test code = Phosphorus) 3.6 2.5-4.5 [facility] [employer] KLWCZ9592-51-41 08:59:00 Test Item Value Reference Range Interpretation Comments eGFR (test code = eGFR) 91 [facility]ownSignal[facility] ECAZO2885-02-53 08:59:00 Test Item Value Reference Range Interpretation Comments BUN (test code = BUN) 16 7-22 [facility]ownSignal[facility] UJVLH9998-87-86 08:59:00 Test Item Value Reference Range Interpretation Comments Potassium Lvl (test code = Potassium 4.5 3.5-5.1 Lvl) [facility]2017-05-23 08:59:00 Test Item Value Reference Range Interpretation Comments Creatinine Lvl (test code = Creatinine 0.89 0.50-1.40 Lvl) [facility]2017-05-23 08:59:00 Test Item Value Reference Range Interpretation Comments Sodium Lvl (test code = Sodium Lvl) 142 135-145 [facility]2017-05-23 08:59:00 Test Item Value Reference Range Interpretation Comments CO2 (test code = CO2) 26 24-32 [facility]2017-05-23 08:59:00 Test Item Value Reference Range Interpretation Comments Calcium Lvl (test code = Calcium Lvl) 8.0 8.5-10.5 [facility]2017-05-23 08:59:00 Test Item Value Reference Range Interpretation Comments Chloride Lvl (test code = Chloride Lvl) 110 95-109 [facility]2017-05-23 08:59:00 Test Item Value Reference Range Interpretation Comments Glucose Lvl (test code = Glucose Lvl) 105 70-99 [facility]2017-05-23 08:59:00 Test Item Value Reference Range Interpretation Comments AGAP (test code = AGAP) 10.5 10.0-20.0 [facility] HospitalBaoybvoPVNJEIGWHL1980-92-62 08:59:00 Test Item Value Reference Range Interpretation Comments RBC (test code = RBC) 3.64 4.70-6.10 [facility] HospitalVdglnlmTZOXXWVGUD8084-93-06 08:59:00 Test Item Value Reference Range Interpretation Comments WBC (test code = WBC) 6.3 3.7-10.4 [facility] HospitalUquccgbYTDNCGWZLI2146-65-39 08:59:00 Test Item Value Reference Range Interpretation Comments Platelet (test code = Platelet) 115 133-450 [facility] HospitalNhmhaubEBUTNHDPRV4107-79-12 08:59:00 Test Item Value Reference Range Interpretation Comments MPV (test code = MPV) 10.8 7.4-10.4 [facility] HospitalVctdxtyWEFQMZUJGC8116-84-97 08:59:00 Test Item Value Reference Range Interpretation Comments MCH (test code = MCH) 30.0 pg 27.0-31.0 [place] 766407-05-23 08:59:00 Test Item Value Reference Range Interpretation Comments MCHC (test code = MCHC) 33.9 32.0-36.0 [facility] HospitalBagjowaONDIOGMKNP4508-14-41 08:59:00 Test Item Value Reference Range Interpretation Comments RDW (test code = RDW) 14.5 11.5-14.5 [facility] HospitalBoleddiKKWIQNXZRP5519-61-89 08:59:00 Test Item Value Reference Range Interpretation Comments MCV (test code = MCV) 88.5 80.0-94.0 [facility] HospitalLpmanpqCUKQMCTYLL6263-40-33 08:59:00 Test Item Value Reference Range Interpretation Comments Eosinophils # (test code 0.3 See_Comment [A utomated message] The = Eosinophils #) system whic h generated this result tra nsmitted reference range : <=0.5. The reference r alva was not used to int erpret this result as normal/abnormal . [facility] HospitalDfajatbUPGRKQUIEW2649-18-27 08:59:00 Test Item Value Reference Range Interpretation Comments Monocytes # (test code 0.5 See_Comment [Aut omated message] The = Monocytes #) system which generated this result tra nsmitted reference range : <=0.8. The reference r alva was not used to int erpret this result as normal/abnormal . [facility] HospitalJdgzgdvWWXQYXZIIG7448-74-95 08:59:00 Test Item Value Reference Range Interpretation Comments Segs (test code = Segs) 59.7 45.0-75.0 [facility] HospitalJfnakauCRLUHEICRL9729-03-07 08:59:00 Test Item Value Reference Range Interpretation Comments Lymphocytes (test code = Lymphocytes) 26.4 20.0-40.0 [facility] HospitalWyeicbaNDGAYQIFKP6290-23-44 08:59:00 Test Item Value Reference Range Interpretation Comments Lymphocytes # (test code = Lymphocytes 1.7 1.0-5.5 #) [facility] HospitalTbtosqtBLSCDIBYTJ7431-27-03 08:59:00 Test Item Value Reference Range Interpretation Comments Monocytes (test code = Monocytes) 8.3 2.0-12.0 [facility] HospitalWhkcgjxUGCVTPJIVF9266-79-51 08:59:00 Test Item Value Reference Range Interpretation Comments Segs-Bands # (test code = Segs-Bands #) 3.7 1.5-8.1 [facility] HospitalPynnnfjBXYCWUHWFT7927-00-99 08:59:00 Test Item Value Reference Range Interpretation Comments Eosinophils (test code = 5.1 See_Comment [A utomated message] The Eosinophils) system which ge nerated this result tra nsmitted reference range : <=4.0. The reference r alva was not used to int erpret this result as normal/abnormal . [facility] HospitalBoocgrmLQNRIGXLRG5901-30-16 08:59:00 Test Item Value Reference Range Interpretation Comments Basophils (test code = 0.5 See_Comment [Aut omated message] The Basophils) system which ge nerated this result tra nsmitted reference range : <=1.0. The reference r alva was not used to int erpret this result as normal/abnormal . [facility] JacksonTfibukfYUETREEYPOUQ5847-48-77 02:03:00 Test Item Value Reference Range Interpretation Comments AGAP (test code = AGAP) 12.9 10.0-20.0 [facility] JacksonXqduuaoJIAQIVDUVOSL1122-46-04 02:03:00 Test Item Value Reference Range Interpretation Comments eGFR (test code = eGFR) 73 [facility] JacksonRlnohiaXXRCDMKPNTPB0492-36-38 02:03:00 Test Item Value Reference Range Interpretation Comments Calcium Lvl (test code = Calcium Lvl) 8.2 8.5-10.5 [facility] JacksonEcfvecvUPRSVUTVRMAL7940-07-68 02:03:00 Test Item Value Reference Range Interpretation Comments CO2 (test code = CO2) 25 24-32 [facility] JacksonBqykdajUVQGKSHXJUGY7271-29-81 02:03:00 Test Item Value Reference Range Interpretation Comments Potassium Lvl (test code = Potassium 3.9 3.5-5.1 Lvl) [facility] JacksonUihvauvSVXBJEVVBQRF5127-64-75 02:03:00 Test Item Value Reference Range Interpretation Comments Chloride Lvl (test code = Chloride Lvl) 107 95-109 [facility] JacksonXpbxlsxFFZWBEHEYNFT8060-06-18 02:03:00 Test Item Value Reference Range Interpretation Comments Sodium Lvl (test code = Sodium Lvl) 141 135-145 [facility] JacksonVweinqjZHQNXFVAWQUU4191-95-86 02:03:00 Test Item Value Reference Range Interpretation Comments Creatinine Lvl (test code = Creatinine 1.08 0.50-1.40 Lvl) [facility] JacksonCmucmbcYPLBWLHYKDQB2264-93-46 02:03:00 Test Item Value Reference Range Interpretation Comments BUN (test code = BUN) 20 7-22 [facility]ownAesxyqgRIECUINOPAXZ9405-47-41 02:03:00 Test Item Value Reference Range Interpretation Comments Glucose Lvl (test code = Glucose Lvl) 115 70-99 [facility] HospitalCbxfxjhNBYGVYEPAX9560-78-48 02:03:00 Test Item Value Reference Range Interpretation Comments Eosinophils # (test code 0.5 See_Comment [A utomated message] The = Eosinophils #) system whic h generated this result tra nsmitted reference range : <=0.5. The reference r alva was not used to int erpret this result as normal/abnormal . [facility] [id number] 02:03:00 Test Item Value Reference Range Interpretation Comments Basophils # (test code 0.1 See_Comment [Aut omated message] The = Basophils #) system which generated this result tra nsmitted reference range : <=0.2. The reference r alva was not used to int erpret this result as normal/abnormal . [facility]RbnqasiGDLCBJOFTH2506-09-33 02:03:00 Test Item Value Reference Range Interpretation Comments Segs (test code = Segs) 53.2 45.0-75.0 [facility] Hospit[id number] 02:03:00 Test Item Value Reference Range Interpretation Comments Lymphocytes # (test code = Lymphocytes 1.8 1.0-5.5 #) [facility] Hospit[id number] 02:03:00 Test Item Value Reference Range Interpretation Comments Monocytes # (test code 0.5 See_Comment [Aut omated message] The = Monocytes #) system which generated this result tra nsmitted reference range : <=0.8. The reference r alva was not used to int erpret this result as normal/abnormal . [facility] HospitalPtnsizkDFLVIUVVZP4889-31-09 02:03:00 Test Item Value Reference Range Interpretation Comments Lymphocytes (test code = Lymphocytes) 29.0 20.0-40.0 [facility] HospitalGkszwspJMERBROWJY0880-01-90 02:03:00 Test Item Value Reference Range Interpretation Comments Eosinophils (test code = 7.7 See_Comment [A utomated message] The Eosinophils) system which ge nerated this result tra nsmitted reference range : <=4.0. The reference r alva was not used to int erpret this result as normal/abnormal . [facility] Hospit[id number] 02:03:00 Test Item Value Reference Range Interpretation Comments Segs-Bands # (test code = Segs-Bands #) 3.2 1.5-8.1 [facility] HospitalEacbregTCRWPLJTGF0352-76-63 02:03:00 Test Item Value Reference Range Interpretation Comments Monocytes (test code = Monocytes) 9.0 2.0-12.0 [facility] HospitalQcimpzfQNZGCUNPBS5262-60-87 02:03:00 Test Item Value Reference Range Interpretation Comments Basophils (test code = 1.1 See_Comment [Aut omated message] The Basophils) system which ge nerated this result tra nsmitted reference range : <=1.0. The reference r alva was not used to int erpret this result as normal/abnormal . [facility] HospitalWiceawzZISJLGDXSY5428-55-32 02:03:00 Test Item Value Reference Range Interpretation Comments WBC (test code = WBC) 6.0 3.7-10.4 [facility] HospitalW[id number] 02:03:00 Test Item Value Reference Range Interpretation Comments RBC (test code = RBC) 4.04 4.70-6.10 [facility] HospitalWnuxwgfRYRLPPTOFF3869-19-86 02:03:00 Test Item Value Reference Range Interpretation Comments MCV (test code = MCV) 88.0 80.0-94.0 [facility] HospitalGtfkbikHUUOLLZZYO8003-01-08 02:03:00 Test Item Value Reference Range Interpretation Comments MCH (test code = MCH) 30.3 pg 27.0-31.0 [facility] HospitalXpceyvwQUAJUKXDPI4568-75-90 02:03:00 Test Item Value Reference Range Interpretation Comments MCHC (test code = MCHC) 34.4 32.0-36.0 [facility] HospitalIulskgeHZARPPPMNV8942-89-66 02:03:00 Test Item Value Reference Range Interpretation Comments RDW (test code = RDW) 14.6 11.5-14.5 [facility] HospitalAxuhdsvFBVNSDHZZI3635-09-10 02:03:00 Test Item Value Reference Range Interpretation Comments Platelet (test code = Platelet) 120 133-450 [facility] HospitalNyslbenXWZINZWVOZ4532-03-50 02:03:00 Test Item Value Reference Range Interpretation Comments MPV (test code = MPV) 10.8 7.4-10.4 [facility] HospitalRksdagfZKXWTXHVIM6789-03-01 02:03:00 Test Item Value Reference Range Interpretation Comments PTT (test code = PTT) 28.4 s 22.9-35.8 [facility] HospitalYzgthpqGILHICFPMP2425-73-44 02:03:00 Test Item Value Reference Range Interpretation Comments INR (test code = INR) 0.99 0.85-1.17 [facility] HospitalCpsfsmaNYBSXKQPEK1260-17-12 02:03:00 Test Item Value Reference Range Interpretation Comments PT (test code = PT) 13.3 s 12.0-14.7 [facility] [id number] 02:03:00 Test Item Value Reference Range Interpretation Comments UA Nitrite (test code Positive *ABN*(04/03/17 = UA Nitrite) 9:03 PM) [facility] [id number] 02:03:00 Test Item Value Reference Range Interpretation Comments UA Bacteria (test code = UA Occasional /HPF Bacteria) [facility] [id number] 02:03:00 Test Item Value Reference Range Interpretation Comments UA RBC (test code = >182 /HPF See_Comment [Automa aime message] The UA RBC) system which ge nerated this result tra nsmitted reference range : <=2. The reference range was not used to interpr et this result as normal/abnormal . [facility] [id number] 02:03:00 Test Item Value Reference Range Interpretation Comments UA WBC (test code 11-20 /HPF See_Comment [Automate d message] The = UA WBC) system which ge nerated this result tra nsmitted reference range : <=5. The reference range was not used to interpr et this result as normal/abnormal . [facility] AND [id number] 02:03:00 Test Item Value Reference Range Interpretation Comments UA Spec Grav (test code = UA Spec Grav) 1.031 [facility] AND [id number] 02:03:00 Test Item Value Reference Range Interpretation Comments UA pH (test code = UA pH) 7.0 5.0-8.0 [facility] AND [id number] 02:03:00 Test Item Value Reference Range Interpretation Comments UA Turbidity (test code Moderate *ABN*(04/03/17 = UA Turbidity) 9:03 PM) [facility] [id number] 02:03:00 Test Item Value Reference Range Interpretation Comments UA Color (test code = Red *ABN*(04/03/17 9:03 UA Color) PM) [facility] [id number] 02:03:00 Test Item Value Reference Range Interpretation Comments UA Leuk Est (test Negative (04/03/17 9:03 code = UA Leuk Est) PM) [facility] [id number] 02:03:00 Test Item Value Reference Range Interpretation Comments UA Sq Epi (test code = UA Sq Occasional /LPF Epi) [facility] [id number] 02:03:00 Test Item Value Reference Range Interpretation Comments UA Glucose (test code = UA Glucose) 50 mg/dL [facility] [id number] 02:03:00 Test Item Value Reference Range Interpretation Comments UA Ketones (test code = Trace *ABN*(04/03/17 UA Ketones) 9:03 PM) [facility] [id number] 02:03:00 Test Item Value Reference Range Interpretation Comments UA Protein (test code = UA >=300 mg/dL Protein) [facility] [id number] 02:03:00 Test Item Value Reference Range Interpretation Comments UA Blood (test code = Large *ABN*(04/03/17 UA Blood) 9:03 PM) [facility] [id number] 02:03:00 Test Item Value Reference Range Interpretation Comments UA Bili (test code = Negative (04/03/17 9:03 UA Bili) PM) [facility] [id number] 02:03:00 Test Item Value Reference Range Interpretation Comments UA Urobilinogen (test code = UA 0.2 0.1-1.0 Urobilinogen) [facility] A2BannCHEM [id number] 08:38:00 Test Item Value Reference Range Interpretation Comments A/G Ratio (test code = A/G Ratio) 0.9 0.7-1.6 [facility] A2BannCHEM [id number] 08:38:00 Test Item Value Reference Range Interpretation Comments Globulin (test code = Globulin) 3.5 2.7-4.2 [facility] [id number] 08:38:00 Test Item Value Reference Range Interpretation Comments B/C Ratio (test code = B/C Ratio) 13 6-25 [facility]2017-04-28 08:38:00 Test Item Value Reference Range Interpretation Comments AGAP (test code = AGAP) 15.0 10.0-20.0 [facility]2017-04-28 08:38:00 Test Item Value Reference Range Interpretation Comments eGFR (test code = eGFR) 64 [facility]2017-04-28 08:38:00 Test Item Value Reference Range Interpretation Comments Alk Phos (test code = Alk Phos) 55 39-136 [facility]2017-04-28 08:38:00 Test Item Value Reference Range Interpretation Comments Bili Total (test code = Bili Total) 0.7 0.2-1.3 [facility]2017-04-28 08:38:00 Test Item Value Reference Range Interpretation Comments AST (test code = AST) 15 See_Comment [Auto mated message] The system which ge nerated this result transmit aime reference range : <=37. The reference range was not used to interpr et this result as sincere l/abnormal. [facility]2017-04-28 08:38:00 Test Item Value Reference Range Interpretation Comments ALT (test code = ALT) 20 See_Comment [Auto mated message] The system which ge nerated this result transmit aime reference range : <=65. The reference range was not used to interpr et this result as sincere l/abnormal. [facility]2017-04-28 08:38:00 Test Item Value Reference Range Interpretation Comments Albumin Lvl (test code = Albumin Lvl) 3.1 3.5-5.0 [facility]2017-04-28 08:38:00 Test Item Value Reference Range Interpretation Comments Creatinine Lvl (test code = Creatinine 1.20 0.50-1.40 Lvl) [facility]2017-04-28 08:38:00 Test Item Value Reference Range Interpretation Comments BUN (test code = BUN) 16 7-22 [facility]2017-04-28 08:38:00 Test Item Value Reference Range Interpretation Comments Glucose Lvl (test code = Glucose Lvl) 118 70-99 [facility]2017-04-28 08:38:00 Test Item Value Reference Range Interpretation Comments Total Protein (test code = Total 6.6 6.4-8.4 Protein) [facility]2017-04-28 08:38:00 Test Item Value Reference Range Interpretation Comments Calcium Lvl (test code = Calcium Lvl) 8.0 8.5-10.5 [facility]2017-04-28 08:38:00 Test Item Value Reference Range Interpretation Comments CO2 (test code = CO2) 26 24-32 [facility]2017-04-28 08:38:00 Test Item Value Reference Range Interpretation Comments Chloride Lvl (test code = Chloride Lvl) 103 95-109 [facility]2017-04-28 08:38:00 Test Item Value Reference Range Interpretation Comments Potassium Lvl (test code = Potassium 4.0 3.5-5.1 Lvl) [facility]2017-04-28 08:38:00 Test Item Value Reference Range Interpretation Comments Sodium Lvl (test code = Sodium Lvl) 140 135-145 [facility] HospitalZepldgtDOODVMAINM0429-02-47 08:38:00 Test Item Value Reference Range Interpretation Comments Hgb (test code = Hgb) 12.9 14.0-18.0 [facility] HospitalDmohuufNMTOMISFMJ8165-37-09 08:38:00 Test Item Value Reference Range Interpretation Comments Hct (test code = Hct) 37.4 42.0-54.0 [facility]2017-04-24 16:39:00 Test Item Value Reference Range Interpretation Comments Glucose Lvl (test code = Glucose Lvl) 97 70-99 [facility]EkduvzaDHUMPIVCVGHP9023-49-92 16:39:00 Test Item Value Reference Range Interpretation Comments Sodium Lvl (test code = Sodium Lvl) 143 135-145 [facility] Jackson[id number] 16:39:00 Test Item Value Reference Range Interpretation Comments Potassium Lvl (test code = Potassium 4.2 3.5-5.1 Lvl) [facility] H[id number] 16:39:00 Test Item Value Reference Range Interpretation Comments Hct (test code = Hct) 40.8 42.0-54.0 [facility] HospitalPytwlvkPGBJYGMKWH0898-64-85 16:39:00 Test Item Value Reference Range Interpretation Comments Hgb (test code = Hgb) 13.8 14.0-18.0 [facility]
--- NOTE | 2022-06-25 13:54 | ER ---
Nurse's Notes [facility] Name: Demarcus Phoenix Age: 66 yrs Sex: Male : 1955 Arrival Date: 06/25/2022 Time: 13:05 Bed Waiting Private MD: Diagnosis: Constipation Presentation: 06/25 13:22 Chief complaint: Patient states: "I was here because I was constipated and when I got ss here I went to the bathroom. Pt states he feels much better.". Coronavirus screen: Client denies travel out of the [place] in the last 14 days. Ebola Screen: Patient denies exposure to infectious person. Patient denies travel to an Ebola-affected area in the 21 days before illness onset. Initial Sepsis Screen: Does the patient meet any 2 criteria? No. Patient's initial sepsis screen is negative. Does the patient have a suspected source of infection? No. Patient's initial sepsis screen is negative. Risk Assessment: Do you want to hurt yourself or someone else? Patient reports no desire to harm self or others. Onset of symptoms is unknown. 13:22 Method Of Arrival: Ambulatory ss 13:22 Acuity: ZHANNA 5 ss Historical: - Allergies: 13:22 chlorihexidine; ss - Home Meds: 13:24 allopurinol 300 mg Oral tab 1 tab once daily [Active]; aspirin 81 mg Oral cap 1 cap ss once daily [Active]; atorvastatin 40 mg oral tab 1 tab once daily [Active]; clopidogrel 75 mg oral tab 1 tab once daily [Active]; olmesartan 40 mg oral tab 1 tab once daily [Active]; omeprazole 20 mg Oral cpDR 1 cap once daily [Active]; metoprolol tartrate 50 mg Oral tab 1 tab 2 times per day [Active]; - PMHx: 13:22 Constipation; Hypertensive disorder; ss - PSHx: 13:24 Cardiac stents; ss - Immunization history:: Client reports receiving the 2nd dose of the Covid vaccine. - Social history:: Smoking status: Patient denies any tobacco usage or history of. Screenin:29 Abuse screen: Denies threats or abuse. Denies injuries from another. Nutritional ss screening: No deficits noted. Tuberculosis screening: Never had TB. Fall Risk None identified. Assessment: 13:29 General: Appears in no apparent distress. comfortable, Behavior is calm, cooperative, ss Denies fever, feeling ill, fatigue, chills. Pain: Denies pain. Neuro: Sargent Agitation-Sedation Scale (RASS): 0 - Alert and Calm Level of Consciousness is awake, alert, obeys commands, Oriented to person, place, time, situation. Respiratory: Respiratory effort is even, unlabored. GI: Abd is soft and non tender X 4 quads. Reports Constipation, but resolved upon arrival to ER [employer] Patient currently denies diarrhea, nausea, vomiting. GI: Abdomen is non-distended. : No signs and/or symptoms were reported regarding the genitourinary system. Derm: Skin is intact, is healthy with good turgor, Skin is dry, Skin is pink, warm \\T\\ dry. normal. Musculoskeletal: Circulation, motion, and sensation intact. Range of motion: intact in all extremities, Swelling absent. Vital Signs: 13:24 BP 153 / 85; Pulse 73; Resp 16; Temp 98.2(TE); Pulse Ox 100% on R/A; Weight 79.38 kg; ss Height 5 ft. 7 in. (170.18 cm); Pain 0/10; 13:24 Body Mass Index 27.41 (79.38 kg, 170.18 cm) ss ED Course: 13:05 Patient arrived in ED. mr 13:22 Triage completed. ss 13:22 Arm band placed on right wrist. ss 13:29 Kenia King, RN is Primary Nurse. ss 13:29 Patient has correct armband on for positive identification. ss 13:29 No provider procedures requiring assistance completed. Patient did not have IV access ss during this emergency room visit. 13:31 Suzi Lopez FNP-C is PHCP. snw 13:31 Naman Mosher MD is Attending Physician. snw Administered Medications: No medications were administered Medication: 13:29 VIS not applicable for this client. ss Outcome: 13:35 Discharged to home ambulatory. ss 13:35 Condition: improved 13:35 Discharge instructions given to patient, Instructed on discharge instructions, follow up and referral plans. Demonstrated understanding of instructions, follow-up care, medications. 13:53 Discharge ordered by MD. ss 13:53 Patient left the ED. ss Signatures: Suzi Lopez FNP-C APPLICATION TESTER-Csnw Norma Baltazar mr Kenia King, RN RN ss
--- NOTE | 2022-06-25 13:54 | EDPHYS ---
Physician Documentation [facility] Name: Demarcus Phoenix Age: 66 yrs Sex: Male : 1955 Arrival Date: 06/25/2022 Time: 13:05 Bed Waiting Private MD: ED Physician Naman Mosher HPI: 06/25 13:34 This 66 yrs old Male presents to ER via Ambulatory with complaints of Constipation. snw 13:34 Onset: The symptoms/episode began/occurred gradually. Associated signs and symptoms: snw Pertinent positives: discomfort, gas. It is unknown whether or not the patient has had similar symptoms in the past. It is unknown whether or not the patient has recently seen a physician. pt has taken metamucil and dulcolax x 3. + relief and pt is reluctant to stay for eval.. Historical: - Allergies: 13:22 chlorihexidine; ss - Home Meds: 13:24 allopurinol 300 mg Oral tab 1 tab once daily [Active]; aspirin 81 mg Oral cap 1 cap ss once daily [Active]; atorvastatin 40 mg oral tab 1 tab once daily [Active]; clopidogrel 75 mg oral tab 1 tab once daily [Active]; olmesartan 40 mg oral tab 1 tab once daily [Active]; omeprazole 20 mg Oral cpDR 1 cap once daily [Active]; metoprolol tartrate 50 mg Oral tab 1 tab 2 times per day [Active]; - PMHx: 13:22 Constipation; Hypertensive disorder; ss - PSHx: 13:24 Cardiac stents; ss - Immunization history:: Client reports receiving the 2nd dose of the Covid vaccine. - Social history:: Smoking status: Patient denies any tobacco usage or history of. ROS: 13:33 Constitutional: Negative for fever, chills, and weight loss, Eyes: Negative for injury, snw pain, redness, and discharge, ENT: Negative for injury, pain, and discharge, Neck: Negative for injury, pain, and swelling, Cardiovascular: Negative for chest pain, palpitations, and edema, Respiratory: Negative for shortness of breath, cough, wheezing, and pleuritic chest pain, Back: Negative for injury and pain, : Negative for injury, bleeding, discharge, and swelling, MS/Extremity: Negative for injury and deformity, Skin: Negative for injury, rash, and discoloration, Neuro: Negative for headache, weakness, numbness, tingling, and seizure, Psych: Negative for depression, anxiety, suicide ideation, homicidal ideation, and hallucinations. 13:33 Abdomen/GI: Positive for constipation, Negative for abdominal pain, vomiting, diarrhea. Exam: 13:33 Constitutional: This is a well developed, well nourished patient who is awake, alert, snw and in no acute distress. Head/Face: Normocephalic, atraumatic. Eyes: Pupils equal round and reactive to light, extra-ocular motions intact. Lids and lashes normal. Conjunctiva and sclera are non-icteric and not injected. Cornea within normal limits. Periorbital areas with no swelling, redness, or edema. ENT: Nares patent. No nasal discharge, no septal abnormalities noted. Tympanic membranes are normal and external auditory canals are clear. Oropharynx with no redness, swelling, or masses, exudates, or evidence of obstruction, uvula midline. Mucous membranes moist. Neck: Trachea midline, no thyromegaly or masses palpated, and no cervical lymphadenopathy. Supple, full range of motion without nuchal rigidity, or vertebral point tenderness. No Meningismus. Chest/axilla: Normal chest wall appearance and motion. Nontender with no deformity. No lesions are appreciated. Cardiovascular: Regular rate and rhythm with a normal S1 and S2. No gallops, murmurs, or rubs. Normal PMI, no JVD. No pulse deficits. Respiratory: Lungs have equal breath sounds bilaterally, clear to auscultation and percussion. No rales, rhonchi or wheezes noted. No increased work of breathing, no retractions or nasal flaring. Abdomen/GI: Soft, non-tender, with normal bowel sounds. No distension or tympany. No guarding or rebound. No evidence of tenderness throughout. Back: No spinal tenderness. No costovertebral tenderness. Full range of motion. Skin: Warm, dry with normal turgor. Normal color with no rashes, no lesions, and no evidence of cellulitis. MS/ Extremity: Pulses equal, no cyanosis. Neurovascular intact. Full, normal range of motion. Neuro: Awake and alert, GCS 15, oriented to person, place, time, and situation. Cranial nerves II-XII grossly intact. Motor strength 5/5 in all extremities. Sensory grossly intact. Cerebellar exam normal. Normal gait. Psych: Awake, alert, with orientation to person, place and time. Behavior, mood, and affect are within normal limits. Vital Signs: 13:24 BP 153 / 85; Pulse 73; Resp 16; Temp 98.2(TE); Pulse Ox 100% on R/A; Weight 79.38 kg; ss Height 5 ft. 7 in. (170.18 cm); Pain 0/10; 13:24 Body Mass Index 27.41 (79.38 kg, 170.18 cm) ss MDM: 13:33 Data reviewed: vital signs, nurses notes. Data interpreted: Pulse oximetry: on room air snw is 100 %. Interpretation: normal. Response to treatment: There is no appreciated change of the patient's symptoms at this time. Special discussion: Based on the history and exam findings, there is no indication for further emergent testing or inpatient evaluation. I discussed with the patient/guardian the need to see the primary care provider for further evaluation of the symptoms. 13:41 Patient medically screened. snw Administered Medications: No medications were administered Disposition: 13:31 Constipation- relieved. snw 18:53 Co-signature as Attending Physician, Naman Mosher MD I agree with the assessment and marito plan of care. Disposition Summary: 06/25/22 13:53 Discharge Ordered Location: Home ss Condition: Stable ss Diagnosis - Constipation ss Discharge Instructions: - Discharge Summary Sheet snw - Constipation, Adult snw - High-Fiber Diet snw Forms: - Medication Reconciliation Form ss - Thank You Letter ss - Antibiotic Education ss - Prescription Opioid Use ss Signatures: Naman Mosher MD MD cha Waters, Shelly, DATA DESIGNER-C DATA DESIGNER-Kenia Beard, OSWALD RN ss
[2022-06-25 14:10] VITALS: BP 153/85; TEMP 98.2; O2SAT 100
== END 2022-06-25 13:53 | disposition home or self-care (01) ==
LOC: ER 13:03
DX: K59.00 Constipation, unspecified (principal); I10 Essential (primary) hypertension; Z79.82 Long term (current) use of aspirin; Z88.8 Allergy status to other drugs, medicaments and biological substances; Z95.5 Presence of coronary angioplasty implant and graft
CPT/HCPCS: 99281